=== PATIENT | male | born 1960 | race American Indian/Alaskan Native ===

== ENCOUNTER 2019-08-22 17:26 | Inpatient (IN) | payer MEDICARE ==
--- NOTE | 2019-08-22 18:31 | Emergency Department Report ---
ED Chest Pain HPI - General Chief Complaint: Chest Pain Stated Complaint: CHEST PAIN Time Seen by Provider: 08/22/19 18:18 Source: patient, EMS Mode of arrival: Stretcher Limitations: No Limitations - History of Present Illness Initial Comments: 58-year-old male with history of ESRD, hypertension, CAD, CVA, presents to ED with chest pain. Patient reports substernal chest pain, "sticking" in nature that began after he finished his dialysis session. Patient denies any radiation of the pain. He denies any nausea, vomiting, diaphoresis. Patient reports he was mildly short of breath when he went to tell the nurse to call 911. Patient states he was given aspirin and 3 sublingual nitroglycerin by the nurse the dialysis center. The patient states that his chest pain from a 4 to a 2. Patient states he had a heart attack in 2013 and reports having open heart surgery. He is unsure if he had stents or if the surgery that he had was a CABG. Bulk Sealer: Rossy Prieto MD Complaint: chest pain Onset: during rest Pain Location: substernal Pain Radiation: none Severity: mild Severity scale (0 -10): 2 Quality: similar to prior [place], other ("sticking") Consistency: other (now improved) Improves With: nitroglycerin Worsens With: nothing re: dyspnea. denies: nausea, vomting, diaphoresis Other Symptoms: denies: cough, fever, leg swelling Treatments Prior to Arrival: aspirin, nitroglycerin - Related Data Home Medications Medication Instructions Recorded Confirmed Last Taken B Complex 11/Folic/C/Biot/Zinc 1 each PO DAILY 08/22/19 08/22/19 08/22/19 [Dialyvite with Zinc Tablet] Losartan Potassium 100 mg PO DAILY 08/22/19 08/22/19 08/22/19 Sevelamer Carbonate [Renvela] 800 mg PO TIDWM 08/22/19 08/22/19 08/22/19 carvediloL [Coreg] 6.25 mg PO BID 08/22/19 08/22/19 08/22/19 Allergies Allergy/AdvReac Type Severity Reaction Status Date / Time No Known Allergies Allergy Unverified 08/22/19 17:54 Heart Score - HEART Score History: Slightly suspicious EKG: Non-specific Age: 45-65 Risk factors: > 3 risk factors or hx of atherosclerotic disease Troponin: 1-3x normal limit HEART Score: 5 ED Review of Systems ROS: Stated complaint: CHEST PAIN Other details as noted in HPI Comment: All other systems reviewed and negative Constitutional: denies: chills, fever Respiratory: shortness of breath Cardiovascular: chest pain Gastrointestinal: denies: nausea, vomiting ED Past Medical Hx - Past Medical History Previous Medical History?: Yes Hx Hypertension: Yes Hx CVA: Yes (2014) Hx Heart Attack/AMI: Yes (2013) Hx Renal Disease: Yes (HD MWF) - Surgical History Past Surgical History?: Yes Hx Open Heart Surgery: Yes (CABG) - Social History Smoking Status: Never Smoker Substance Use Type: None - Medications Home Medications: Home Medications Medication Instructions Recorded Confirmed Last Taken Type B Complex 11/Folic/C/Biot/Zinc 1 each PO DAILY 08/22/19 08/22/19 08/22/19 History [Dialyvite with Zinc Tablet] Losartan Potassium 100 mg PO DAILY 08/22/19 08/22/19 08/22/19 History Sevelamer Carbonate [Renvela] 800 mg PO TIDWM 08/22/19 08/22/19 08/22/19 History carvediloL [Coreg] 6.25 mg PO BID 08/22/19 08/22/19 08/22/19 History ED Physical Exam - General Limitations: No Limitations General appearance: alert, in no apparent distress - Head Head exam: Present: atraumatic, normocephalic - Eye Eye exam: Present: normal appearance, EOMI - ENT ENT exam: Present: mucous membranes moist - Neck Neck exam: Present: normal inspection - Respiratory Respiratory exam: Present: normal lung sounds bilaterally. Absent: respiratory distress - Cardiovascular Cardiovascular Exam: Present: regular rate, normal rhythm - GI/Abdominal GI/Abdominal exam: Present: soft. Absent: distended, tenderness - Extremities Exam Extremities exam: Present: normal inspection - Neurological Exam Neurological exam: Present: alert, oriented X3 - Psychiatric Psychiatric exam: Present: normal affect, normal mood - Skin Skin exam: Present: warm, dry, intact, normal color ED Course Vital Signs 08/22/19 08/22/19 08/22/19 17:46 19:42 20:52 Temperature 97.5 F L 98.6 F Pulse Rate 88 81 89 Respiratory 16 18 Rate Blood Pressure 126/79 Blood Pressure 139/88 [Left] O2 Sat by Pulse 100 99 Oximetry - Consultations Consultation #1: 08/22/19 19:40 Prehospital and ED EKG's sent to Dr Rivera for review. States no STEMI. APOLINAR score - Apolinar Score Age > 65: (0) No Aspirin use within the Past 7 Days: (0) No 3 or more CAD Risk Factors: (1) Yes 2 or more Angina events in past 24 hrs: (0) No Known CAD with more than 50% Stenosis: (1) Yes Elevated Cardiac Markers: (1) Yes ST Deviation Greater than 0.5mm: (0) No APOLINAR Score: 3 ED Medical Decision Making - Lab Data Result diagrams: 08/22/19 18:38 08/22/19 18:38 - EKG Data -: EKG Interpreted by Me EKG shows normal: sinus rhythm, axis - EKG Data Interpretation: LVH, other (prolonged QT; T wave inversions I, aVL V2) - Radiology Data Radiology results: report reviewed, image reviewed - Medical Decision Making 58 yo M w/ hx of CAD, ESRD presents to ED with chest pain. Aspirin, SL nitro given prior to ED arrival. Upon ED arrival, pt rates chest pain intensity 2/10. EKG does not show STEMI, they were sent to interventionalist for review. Troponin slightly elevated, possibly due to pt's renal function. Remainder of labs unremarkable. Will admit for further management. - Differential Diagnosis ACS, pulm edema, pneumonia Critical care attestation.: If time is entered above; I have spent that time in minutes in the direct care of this critically ill patient, excluding procedure time. ED Disposition Clinical Impression: Acute chest pain Disposition: OP ADMIT IP TO THIS HOSP Is pt being admited?: Yes Condition: Stable Time of Disposition: 19:44
[2019-08-22 19:02] LABS: Basophils % (Auto) 0.4 % (0.0-1.8); Eosinophils # (Auto) 0.1 K/mm3 (0.0-0.4); Eosinophils % (Auto) 1.2 % (0.0-4.3); Hematocrit 38.9 % (35.5-45.6); Lymphocytes # (Auto) 1.6 K/mm3 (1.2-5.4); Lymphocytes % (Auto) 31.6 % (13.4-35.0); Mean Corpuscular HGB Conc 33 % (32-34); Mean Corpuscular Volume 90 fl (84-94); Monocytes # (Auto) 0.5 K/mm3 (0.0-0.8); Monocytes % (Auto) 9.3 % (0.0-7.3); Platelet Count 170 K/mm3 (140-440); Red Blood Count 4.34 M/mm3 (3.65-5.03); Red Cell Distribution Width 16.2 % (13.2-15.2)
--- NOTE | 2019-08-22 19:02 | XRay Report ---
CHEST 1 VIEW 1836 INDICATION / CLINICAL INFORMATION: chest pain. COMPARISON: None available. FINDINGS: SUPPORT DEVICES: None HEART / MEDIASTINUM: Cardiac surgical changes are noted. Heart size appears within normal limits. LUNGS / PLEURA: No significant pulmonary or pleural abnormality. No pneumothorax. ADDITIONAL FINDINGS: No significant additional findings. IMPRESSION: No significant acute abnormality Signer Name: Carlo Olsen MD Signed: 08/22/2019 6:58 PM Workstation Name: [id number]
[2019-08-22 19:12] LABS: INR 0.9 (0.87-1.13); Partial Thromboplastin Time 27.6 Sec. (24.2-36.6)
[2019-08-22 19:22] LABS: Calcium 9.1 mg/dL (8.4-10.2)
[2019-08-22 19:38] LABS: Chol/HDL Ratio 5.81 %
[2019-08-22] MEDS ORDERED: ONDANSETRON 4 MG/2 ML INJ IV PRN (19:52)
--- NOTE | 2019-08-22 20:22 | History and Physical Report ---
<RONNIE MORALES - Last Filed: 08/23/19 01:03> History of Present Illness Date of examination: 08/22/19 Date of admission: 08/22/19 Chief complaint: Chest pain History of present illness: Pt is a 58-year-old male with a past medical history of ESRD, hypertension,and, CVA (2013),whom presents to ED with complaints of chest pain. Patient reports the chest pain started after he completed dialysis today. He was waiting at the bus stop, and the pain was a sudden onset and described as sharp in nature, without radiation and unaccompanied by any nausea. Patient states since he started dialysis in November of 2018, and he has had 2 incidents of shortness of breath right after being dialyzed with syncopal events. He states he has not received care or come to the ER because he was already close to home on both occasions. Past History Past Medical History: acute [place] (2013), ESRD (2018), hypertension Past Surgical History: CABG Social history: lives with family Family history: cancer, diabetes Medications and Allergies Allergies Allergy/AdvReac Type Severity Reaction Status Date / Time No Known Allergies Allergy Unverified 08/22/19 17:54 Home Medications Medication Instructions Recorded Confirmed Last Taken Type B Complex 11/Folic/C/Biot/Zinc 1 each PO DAILY 08/22/19 08/22/19 08/22/19 History [Dialyvite with Zinc Tablet] Losartan Potassium 100 mg PO DAILY 08/22/19 08/22/19 08/22/19 History Sevelamer Carbonate [Renvela] 800 mg PO TIDWM 08/22/19 08/22/19 08/22/19 History carvediloL [Coreg] 6.25 mg PO BID 08/22/19 08/22/19 08/22/19 History Active Meds: Active Medications Acetaminophen (Tylenol) 650 mg PO Q4H PRN PRN Reason: Pain MILD(1-3)/Fever >100.5/BOYCE Ondansetron HCl (Zofran) 4 mg IV Q8H PRN PRN Reason: Nausea And Vomiting Sodium Chloride (Sodium Chloride Flush Syringe 10 Ml) 10 ml IV BID FER Sodium Chloride (Sodium Chloride Flush Syringe 10 Ml) 10 ml IV PRN PRN PRN Reason: LINE FLUSH Review of Systems All systems: negative Ears, nose, mouth and throat: nasal congestion, no dental pain, no mouth pain, no sore throat Cardiovascular: chest pain, dyspnea on exertion, high blood pressure, leg edema Respiratory: cough, no pain on inspiration, no home oxygen Gastrointestinal: no nausea, no vomiting, no diarrhea Genitourinary Male: no dysuria Rectal: no pain Musculoskeletal: no arm numbness/tingling, no low back pain, no shooting leg regi n, no leg numbness/tingling Integumentary: no rash Neurological: no head injury, no weakness Psychiatric: no anxiety, no change in appetite, no suicidal ideation Endocrine: no cold intolerance, no excessive sweating Hematologic/Lymphatic: no easy bruising, no easy bleeding Allergic/Immunologic: no urticaria Exam - Physical Exam Narrative exam: General appearance: Present: no acute distress - EENT Eyes: Present: PERRL, EOM intact ENT: hearing intact - Neck Neck: Present: supple, normal ROM - Respiratory Respiratory effort: normal Respiratory: bilateral: CTA - Cardiovascular Rhythm: regular - Extremities Extremities: pulses intact Peripheral Pulses: within normal limits - Abdominal General gastrointestinal: Non- tender - Integumentary Integumentary: Present: warm, dry - Musculoskeletal Musculoskeletal: strength unequal bilaterally, ambulates with cane - Psychiatric Psychiatric: appropriate mood/affect - Neurologic Neurologic: CNII-XII intact - Constitutional Vitals: Temp Pulse Resp BP Pulse Ox 97.5 F L 81 16 126/79 100 08/22/19 17:46 08/22/19 19:42 08/22/19 17:46 08/22/19 17:46 08/22/19 17:46 Results - Labs CBC & Chem 7: 08/22/19 18:38 08/22/19 18:38 Labs: Laboratory Last Values WBC 4.9 K/mm3 (4.5-11.0) 08/22/19 18:38 RBC 4.34 M/mm3 (3.65-5.03) 08/22/19 18:38 Hgb 13.0 gm/dl (11.8-15.2) 08/22/19 18:38 Hct 38.9 % (35.5-45.6) 08/22/19 18:38 MCV 90 fl (84-94) 08/22/19 18:38 MCH 30 pg (28-32) 08/22/19 18:38 MCHC 33 % (32-34) 08/22/19 18:38 RDW 16.2 % (13.2-15.2) H 08/22/19 18:38 Plt Count 170 K/mm3 (140-440) 08/22/19 18:38 Lymph % (Auto) 31.6 % (13.4-35.0) 08/22/19 18:38 Baldwin % (Auto) 9.3 % (0.0-7.3) H 08/22/19 18:38 Eos % (Auto) 1.2 % (0.0-4.3) 08/22/19 18:38 Baso % (Auto) 0.4 % (0.0-1.8) 08/22/19 18:38 Lymph # 1.6 K/mm3 (1.2-5.4) 08/22/19 18:38 Baldwin # 0.5 K/mm3 (0.0-0.8) 08/22/19 18:38 Eos # 0.1 K/mm3 (0.0-0.4) 08/22/19 18:38 Baso # 0.0 K/mm3 (0.0-0.1) 08/22/19 18:38 Seg Neutrophils % 57.5 % (40.0-70.0) 08/22/19 18:38 Seg Neutrophils # 2.8 K/mm3 (1.8-7.7) 08/22/19 18:38 PT 12.2 Sec. (12.2-14.9) 08/22/19 18:38 INR 0.90 (0.87-1.13) 08/22/19 18:38 APTT 27.6 Sec. (24.2-36.6) 08/22/19 18:38 Sodium 140 mmol/L (137-145) 08/22/19 18:38 Potassium 4.3 mmol/L (3.6-5.0) 08/22/19 18:38 Chloride 97.4 mmol/L (98-107) L 08/22/19 18:38 Carbon Dioxide 25 mmol/L (22-30) 08/22/19 18:38 Anion Gap 22 mmol/L 08/22/19 18:38 BUN 23 mg/dL (9-20) H 08/22/19 18:38 Creatinine 4.8 mg/dL (0.8-1.5) H 08/22/19 18:38 Estimated GFR 13 ml/min 08/22/19 18:38 BUN/Creatinine Ratio 5 % 08/22/19 18:38 Glucose 102 mg/dL (75-100) H 08/22/19 18:38 Calcium 9.1 mg/dL (8.4-10.2) 08/22/19 18:38 Troponin T 0.040 ng/mL (0.00-0.029) H 08/22/19 18:38 Triglycerides 391 mg/dL (2-149) H 08/22/19 18:38 Cholesterol 215 mg/dL (50-199) H 08/22/19 18:38 LDL Cholesterol Direct 126 mg/dL (50-130) 08/22/19 18:38 HDL Cholesterol 37 mg/dL (40-59) L 08/22/19 18:38 Cholesterol/HDL Ratio 5.81 % 08/22/19 18:38 - Imaging and Cardiology EKG: report reviewed (sinus rhythm, LVH ) Chest x-ray: report reviewed (No significant acute abnormality ) Assessment and Plan Assessment and plan: Pt is a 58-year-old male with a past medical history of ESRD, hypertension, gastric bypass and, CVA (2013),whom presents to ED with chest pain today. At assessment he reports pain of 2 out of 10, sharp, with no radiation. He also denies nausea or vomiting at this time. Chest pain -EKG; LVH -Cardiology consult -Trend troponin ESRD -MWF dialysis -Nephrology consult -monitor labs Hypertension -BP currently stable -Continue home meds after reconciled, adjust as needed -PRN IV hydralazine -Monitor BP q shift DVT prophylaxis -SCD to BLE while in bed -Heparin subq VTE prophylaxis?: Chemical Plan of care discussed with patient/family: Yes <BHAKTI BONDS - Last Filed: 08/23/19 03:38> History of Present Illness Date of admission: 08/22/19 19:52 Medications and Allergies Active Meds: Active Medications Acetaminophen (Tylenol) 650 mg PO Q4H PRN PRN Reason: Pain MILD(1-3)/Fever >100.5/BOYCE Heparin Sodium (Porcine) (Heparin) 5,000 unit SUB-Q Q12HR [facility] Last Admin: 08/22/19 22:08 Dose: 5,000 unit Documented by: Hydralazine HCl (Apresoline) 10 mg IV Q4HR PRN PRN Reason: FOR SBP>160 AND/OR DBP>100 Ondansetron HCl (Zofran) 4 mg IV Q8H PRN PRN Reason: Nausea And Vomiting Sodium Chloride (Sodium Chloride Flush Syringe 10 Ml) 10 ml IV BID [facility] Last Admin: 08/22/19 22:08 Dose: 10 ml Documented by: Sodium Chloride (Sodium Chloride Flush Syringe 10 Ml) 10 ml IV PRN PRN PRN Reason: LINE FLUSH Exam - Constitutional Vitals: Temp Pulse Resp BP Pulse Ox 98.7 F 79 18 149/85 92 08/22/19 22:42 08/22/19 22:42 08/22/19 22:42 08/22/19 22:42 08/22/19 22:42 Results - Labs CBC & Chem 7: 08/22/19 18:38 08/22/19 18:38 Labs: Laboratory Last Values WBC 4.9 K/mm3 (4.5-11.0) 08/22/19 18:38 RBC 4.34 M/mm3 (3.65-5.03) 08/22/19 18:38 Hgb 13.0 gm/dl (11.8-15.2) 08/22/19 18:38 Hct 38.9 % (35.5-45.6) 08/22/19 18:38 MCV 90 fl (84-94) 08/22/19 18:38 MCH 30 pg (28-32) 08/22/19 18:38 MCHC 33 % (32-34) 08/22/19 18:38 RDW 16.2 % (13.2-15.2) H 08/22/19 18:38 Plt Count 170 K/mm3 (140-440) 08/22/19 18:38 Lymph % (Auto) 31.6 % (13.4-35.0) 08/22/19 18:38 Baldwin % (Auto) 9.3 % (0.0-7.3) H 08/22/19 18:38 Eos % (Auto) 1.2 % (0.0-4.3) 08/22/19 18:38 Baso % (Auto) 0.4 % (0.0-1.8) 08/22/19 18:38 Lymph # 1.6 K/mm3 (1.2-5.4) 08/22/19 18:38 Baldwin # 0.5 K/mm3 (0.0-0.8) 08/22/19 18:38 Eos # 0.1 K/mm3 (0.0-0.4) 08/22/19 18:38 Baso # 0.0 K/mm3 (0.0-0.1) 08/22/19 18:38 Seg Neutrophils % 57.5 % (40.0-70.0) 08/22/19 18:38 Seg Neutrophils # 2.8 K/mm3 (1.8-7.7) 08/22/19 18:38 PT 12.2 Sec. (12.2-14.9) 08/22/19 18:38 INR 0.90 (0.87-1.13) 08/22/19 18:38 APTT 27.6 Sec. (24.2-36.6) 08/22/19 18:38 Sodium 140 mmol/L (137-145) 08/22/19 18:38 Potassium 4.3 mmol/L (3.6-5.0) 08/22/19 18:38 Chloride 97.4 mmol/L (98-107) L 08/22/19 18:38 Carbon Dioxide 25 mmol/L (22-30) 08/22/19 18:38 Anion Gap 22 mmol/L 08/22/19 18:38 BUN 23 mg/dL (9-20) H 08/22/19 18:38 Creatinine 4.8 mg/dL (0.8-1.5) H 08/22/19 18:38 Estimated GFR 13 ml/min 08/22/19 18:38 BUN/Creatinine Ratio 5 % 08/22/19 18:38 Glucose 102 mg/dL (75-100) H 08/22/19 18:38 Calcium 9.1 mg/dL (8.4-10.2) 08/22/19 18:38 Total Creatine Kinase 880 units/L (55-170) H 08/22/19 22:58 CK-MB (CK-2) 4.6 ng/mL (0.0-4.0) H 08/22/19 22:58 CK-MB (CK-2) Rel Index 0.5 (0-4) 08/22/19 22:58 Troponin T 0.048 ng/mL (0.00-0.029) H 08/22/19 23:01 Triglycerides 391 mg/dL (2-149) H 08/22/19 18:38 Cholesterol 215 mg/dL (50-199) H 08/22/19 18:38 LDL Cholesterol Direct 126 mg/dL (50-130) 08/22/19 18:38 HDL Cholesterol 37 mg/dL (40-59) L 08/22/19 18:38 Cholesterol/HDL Ratio 5.81 % 08/22/19 18:38 Assessment and Plan Assessment and plan: 58-year-old woman with a history of hypertension since, end-stage renal disease, seizure comes emergency room with complaints of chest pain located in the epigastric area relieved with 3 nitroglycerin. He had a stress test 1 year ago which was negative. Patient with elevated troponin in the setting of end-stage renal disease, agree with cardiology consult.
[2019-08-22] MEDS ORDERED: hydrALAZINE 20 MG/1 ML INJ IV PRN (22:00)
[2019-08-22] MEDS: HEPARIN 5,000 UNIT/1 ML VIAL SUB-Q SCH (22:08)
[2019-08-22 23:43] LABS: Creatine Kinase MB 4.6 ng/mL (0.0-4.0)
[2019-08-23 05:50] LABS: Basophils % (Auto) 0.5 % (0.0-1.8); Eosinophils # (Auto) 0.1 K/mm3 (0.0-0.4); Eosinophils % (Auto) 1.3 % (0.0-4.3); Hemoglobin 12.7 gm/dl (11.8-15.2); Lymphocytes # (Auto) 1.9 K/mm3 (1.2-5.4); Lymphocytes % (Auto) 33.6 % (13.4-35.0); Mean Corpuscular HGB Conc 34 % (32-34); Mean Corpuscular Volume 89 fl (84-94); Monocytes # (Auto) 0.6 K/mm3 (0.0-0.8); Platelet Count 158 K/mm3 (140-440); Red Blood Count 4.15 M/mm3 (3.65-5.03); Red Cell Distribution Width 16.6 % (13.2-15.2)
[2019-08-23 06:12] LABS: Calcium 8.4 mg/dL (8.4-10.2)
[2019-08-23] MEDS: SEVELAMER CARBONATE 800 MG TAB PO SCH ×3 (08:35→16:40)
[2019-08-23] MEDS: ACETAMINOPHEN 325 MG TAB PO PRN (10:20)
[2019-08-23] MEDS: FOLIC ACID/VIT B COMP W-C 1 MG (RENAL CAPS) PO SCH (10:21)
[2019-08-23] MEDS: LOSARTAN 50 MG TAB PO SCH (10:21)
[2019-08-23] MEDS: HEPARIN 5,000 UNIT/1 ML VIAL SUB-Q SCH ×2 (10:22→23:27)
--- NOTE | 2019-08-23 12:18 | Consultation ---
History of Present Illness Consult date: 08/23/19 Consult reason: chest pain History of present illness: 58-year old male with multiple medical problems. He has a history of coronary artery disease with 3 vessel bypass grafting in [address] [facility]. Patient has not followed up with a fundraising specialist and it is unclear of his last cardiac workup. Patient has end stage renal disease on hemodialysis, chronic anemia, hyperlipidemia and hypertension. Patient was sent from dialysis to this hospital with complaints of chest pain associated with shortness of breath. Patient denies palpitations and diaphoresis. There is no lower extremity edema. Chest x-ray is negative. An ECG is sinus rhythm with LVH. Cardiology consultation has been requested for chest pain evaluation. Past History Past Medical History: acute [place] (2013), ESRD (2019), hypertension Past Surgical History: CABG Social history: lives with family Family history: cancer, diabetes Medications and Allergies Allergies Allergy/AdvReac Type Severity Reaction Status Date / Time No Known Allergies Allergy Unverified 08/22/19 17:54 Home Medications Medication Instructions Recorded Confirmed Last Taken Type B Complex 11/Folic/C/Biot/Zinc 1 each PO DAILY 08/22/19 08/22/19 08/22/19 History [Dialyvite with Zinc Tablet] Losartan Potassium 100 mg PO DAILY 08/22/19 08/22/19 08/22/19 History Sevelamer Carbonate [Renvela] 800 mg PO TIDWM 08/22/19 08/22/19 08/22/19 History carvediloL [Coreg] 6.25 mg PO BID 08/22/19 08/22/19 08/22/19 History Active Meds: Active Medications Acetaminophen (Tylenol) 650 mg PO Q4H PRN PRN Reason: Pain MILD(1-3)/Fever >100.5/BOYCE Last Admin: 08/23/19 10:20 Dose: 650 mg Documented by: Heparin Sodium (Porcine) (Heparin) 5,000 unit SUB-Q Q12HR [facility] Last Admin: 08/23/19 10:22 Dose: 5,000 unit Documented by: Hydralazine HCl (Apresoline) 10 mg IV Q4HR PRN PRN Reason: FOR SBP>160 AND/OR DBP>100 Losartan Potassium (Cozaar) 100 mg PO DAILY [facility] Last Admin: 08/23/19 10:21 Dose: 100 mg Documented by: Multivit/Ca Carb/B Cmplx/FA/Prenat (Renal Caps) 1 cap PO QDAY [facility] Last Admin: 08/23/19 10:21 Dose: 1 cap Documented by: Ondansetron HCl (Zofran) 4 mg IV Q8H PRN PRN Reason: Nausea And Vomiting Sevelamer Carbonate (Renvela) 800 mg PO TIDWM [facility] Last Admin: 08/23/19 08:35 Dose: 800 mg Documented by: Sodium Chloride (Sodium Chloride Flush Syringe 10 Ml) 10 ml IV BID [facility] Last Admin: 08/23/19 10:22 Dose: 10 ml Documented by: Sodium Chloride (Sodium Chloride Flush Syringe 10 Ml) 10 ml IV PRN PRN PRN Reason: LINE FLUSH Physical Examination Vital Signs Temp Pulse Resp BP Pulse Ox 97.5 F L 88 16 126/79 100 08/22/19 17:46 08/22/19 17:46 08/22/19 17:46 08/22/19 17:46 08/22/19 17:46 General appearance: no acute distress HEENT: Positive: PERRL Neck: Positive: trachea midline Cardiac: Positive: Reg Rate and Rhythm Lungs: Positive: Decreased Breath Sounds Results 08/23/19 05:19 08/23/19 05:19 Cardiac Enzymes 08/22/19 08/23/19 Range/Units 22:58 05:19 CK-MB (CK-2) 4.6 H 5.0 H (0.0-4.0) ng/mL Coagulation 08/22/19 Range/Units 18:38 PT 12.2 (12.2-14.9) Sec. INR 0.90 (0.87-1.13) APTT 27.6 (24.2-36.6) Sec. Lipids 08/22/19 Range/Units 18:38 Triglycerides 391 H (2-149) mg/dL Cholesterol 215 H (50-199) mg/dL HDL Cholesterol 37 L (40-59) mg/dL Cholesterol/HDL Ratio 5.81 % CBC 08/22/19 08/23/19 Range/Units 18:38 05:19 WBC 4.9 5.5 (4.5-11.0) K/mm3 RBC 4.34 4.15 (3.65-5.03) M/mm3 Hgb 13.0 12.7 (11.8-15.2) gm/dl Hct 38.9 37.0 (35.5-45.6) % Plt Count 170 158 (140-440) K/mm3 Lymph # 1.6 1.9 (1.2-5.4) K/mm3 [place] # 0.5 0.6 (0.0-0.8) K/mm3 Eos # 0.1 0.1 (0.0-0.4) K/mm3 Baso # 0.0 0.0 (0.0-0.1) K/mm3 Comprehensive Metabolic Panel 08/22/19 08/23/19 Range/Units 18:38 05:19 Sodium 140 135 L (137-145) mmol/L Potassium 4.3 3.5 L (3.6-5.0) mmol/L Chloride 97.4 L 94.9 L (98-107) mmol/L Carbon Dioxide 25 25 (22-30) mmol/L BUN 23 H 31 H (9-20) mg/dL Creatinine 4.8 H 5.8 H (0.8-1.5) mg/dL Glucose 102 H 109 H (75-100) mg/dL Calcium 9.1 8.4 (8.4-10.2) mg/dL Assessment and Plan Chest pain Mild elevated troponin likely in the setting of renal failure Hx of CAD with 3v CABG in 2013 at [facility]'s noncompliant with outpatient cardiac follow up ESRD on dialysis Chronic anemia HLP Htn
--- NOTE | 2019-08-23 17:13 | Progress Note ---
Assessment and Plan Assessment and plan: Patient is a 58-year-old man with a history of ESRD, hypertension and CVA (2013) who presents to [facility] ED with chest pains and near syncope. He was found to have positive troponin with on going chest pains, so [facility] (in coordination) with hemodialysis is planned for tomorrow. . Chest pain, suspected NSTEMI vs type 2 WA -EKG; LVH -Cardiology consult, input noted -[facility] tomorrow ESRD -MWF dialysis -Nephrology consult -monitor labs Hypertension -BP currently stable -Continue home meds after reconciled, adjust as needed -PRN IV hydralazine -Monitor BP q shift DVT prophylaxis -SCD to BLE while in bed -Heparin subq History Interval history: Patient was seen and examined. Follow-up on current diagnosis chest pains. +Recurrent Chest pains. No overnight events reported to me. Patient denies any shortness breath, nausea/vomiting or severe headaches. Imaging, nursing note, chart, labs and old chart reviewed. Discussed with patient. Hospitalist Physical - Physical exam Narrative exam: Gen: WDWN, NAD, Awake, Alert, Orientated HEENT: NCAT, EOMI, PERRL, OP Clear Neck: supple, no adenopathy, no thyromegaly, no JVD CVS/Heart: RRR, normal S1S2, pulses present bilaterally Chest/Lungs: CTA B, Symmetrical chest expansion, good air entry bilaterally GI/Abdomen: soft, NTND, good bowel sounds, no guarding or rebound /Bladder: no suprapubic tenderness, no CVA or paraspinal tenderness Extermity/Skin: no c/c/e, no obvious rash MSK: FROM x 4 Neuro: CN 2-12 grossly intact, no new focal deficits Psych: calm - Constitutional Vitals: Temp Pulse Resp BP Pulse Ox 98.0 F 85 20 152/92 97 08/23/19 11:51 08/23/19 12:00 08/23/19 11:51 08/23/19 11:51 08/23/19 11:51 General appearance: Present: no acute distress Results - Labs CBC & Chem 7: 08/23/19 05:19 08/23/19 05:19 Labs: Laboratory Last Values WBC 5.5 K/mm3 (4.5-11.0) 08/23/19 05:19 RBC 4.15 M/mm3 (3.65-5.03) 08/23/19 05:19 Hgb 12.7 gm/dl (11.8-15.2) 08/23/19 05:19 Hct 37.0 % (35.5-45.6) 08/23/19 05:19 MCV 89 fl (84-94) 08/23/19 05:19 MCH 31 pg (28-32) 08/23/19 05:19 MCHC 34 % (32-34) 08/23/19 05:19 RDW 16.6 % (13.2-15.2) H 08/23/19 05:19 Plt Count 158 K/mm3 (140-440) 08/23/19 05:19 Lymph % (Auto) 33.6 % (13.4-35.0) 08/23/19 05:19 [place] % (Auto) 10.0 % (0.0-7.3) H 08/23/19 05:19 Eos % (Auto) 1.3 % (0.0-4.3) 08/23/19 05:19 Baso % (Auto) 0.5 % (0.0-1.8) 08/23/19 05:19 Lymph # 1.9 K/mm3 (1.2-5.4) 08/23/19 05:19 [place] # 0.6 K/mm3 (0.0-0.8) 08/23/19 05:19 Eos # 0.1 K/mm3 (0.0-0.4) 08/23/19 05:19 Baso # 0.0 K/mm3 (0.0-0.1) 08/23/19 05:19 Seg Neutrophils % 54.6 % (40.0-70.0) 08/23/19 05:19 Seg Neutrophils # 3.0 K/mm3 (1.8-7.7) 08/23/19 05:19 PT 12.2 Sec. (12.2-14.9) 08/22/19 18:38 INR 0.90 (0.87-1.13) 08/22/19 18:38 APTT 27.6 Sec. (24.2-36.6) 08/22/19 18:38 Sodium 135 mmol/L (137-145) L 08/23/19 05:19 Potassium 3.5 mmol/L (3.6-5.0) L 08/23/19 05:19 Chloride 94.9 mmol/L (98-107) L 08/23/19 05:19 Carbon Dioxide 25 mmol/L (22-30) 08/23/19 05:19 Anion Gap 19 mmol/L 08/23/19 05:19 BUN 31 mg/dL (9-20) H 08/23/19 05:19 Creatinine 5.8 mg/dL (0.8-1.5) H 08/23/19 05:19 Estimated GFR 12 ml/min 08/23/19 05:19 BUN/Creatinine Ratio 5 % 08/23/19 05:19 Glucose 109 mg/dL (75-100) H 08/23/19 05:19 Calcium 8.4 mg/dL (8.4-10.2) 08/23/19 05:19 Total Creatine Kinase 1035 units/L (55-170) H 08/23/19 05:19 CK-MB (CK-2) 5.0 ng/mL (0.0-4.0) H 08/23/19 05:19 CK-MB (CK-2) Rel Index 0.4 (0-4) 08/23/19 05:19 Troponin T 0.044 ng/mL (0.00-0.029) H 08/23/19 05:19 Triglycerides 391 mg/dL (2-149) H 08/22/19 18:38 Cholesterol 215 mg/dL (50-199) H 08/22/19 18:38 LDL Cholesterol Direct 126 mg/dL (50-130) 08/22/19 18:38 HDL Cholesterol 37 mg/dL (40-59) L 08/22/19 18:38 Cholesterol/HDL Ratio 5.81 % 08/22/19 18:38 Active Medications - Current Medications Current Medications: Generic Name Dose Route Start Last Admin Trade Name Freq PRN Reason Stop Dose Admin Acetaminophen 650 mg 08/22/19 19:52 08/23/19 10:20 Tylenol PO 650 mg Q4H PRN Administration Pain MILD(1-3)/Fever >100.5/BOYCE Heparin Sodium (Porcine) 5,000 unit 08/22/19 22:00 08/23/19 10:22 Heparin SUB-Q 5,000 unit Q12HR FER Administration Hydralazine HCl 10 mg 08/22/19 22:00 Apresoline IV Q4HR PRN FOR SBP>160 AND/OR DBP>100 Losartan Potassium 100 mg 08/23/19 10:00 08/23/19 10:21 Cozaar PO 100 mg DAILY FER Administration Multivit/Ca Carb/B Cmplx/FA/Prenat 1 cap 08/23/19 10:00 08/23/19 10:21 Renal Caps PO 1 cap QDAY FER Administration Ondansetron HCl 4 mg 08/22/19 19:52 Zofran IV Q8H PRN Nausea And Vomiting Sevelamer Carbonate 800 mg 08/23/19 08:00 08/23/19 16:40 Renvela PO 800 mg TIDWM FER Administration Sodium Chloride 10 ml 08/22/19 22:00 08/23/19 10:22 Sodium Chloride Flush Syringe 10 Ml IV 10 ml BID FER Administration Sodium Chloride 10 ml 08/22/19 19:52 Sodium Chloride Flush Syringe 10 Ml IV PRN PRN LINE FLUSH
--- NOTE | 2019-08-23 19:14 | Consultation ---
History of Present Illness - Reason for Consult Consult date: 08/23/19 end stage renal disease, other (chest pain) Requesting physician: EDMUNDO HERNANDEZ - History of Present Illness 58-year-old male with a history of hypertension, complicated by end-stage renal disease on hemodialysis since November 2018. He also has a history of coronary artery bypass in 2013 following a myocardial infarction. He has been doing well on dialysis other than 2 episodes of syncope. Patient had dialysis yesterday and completed dialysis, and while waiting for JEROME peña to take him home, he developed abdominal pain which then radiated to the left side of his chest. Pain was severe and made the patient bend over and start crying and so he told the dialysis staff to call 911. There was associated shortness of breath but denies any palpitations, dizziness, diaphoresis, nausea or vomiting. Patient was given aspirin and 2 nitroglycerin tablets. He's not had any chest pain s carlos earlier today. He feels better. Past History Past Medical History: acute [place] (2013), ESRD (2018), hypertension, stroke Past Surgical History: CABG, Other (Surgert to repair lacerated ligaments right wrist workplace injury.) Social history: lives with family (lives with his ), alcohol abuse (with drinking alcohol November 2018. 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 denies: smoking (lifetime nonsmoker), prescription drug abuse, IV drug use Family history: cancer, diabetes Medications and Allergies Allergies Allergy/AdvReac Type Severity Reaction Status Date / Time No Known Allergies Allergy Unverified 08/22/19 17:54 Home Medications Medication Instructions Recorded Confirmed Last Taken Type B Complex 11/Folic/C/Biot/Zinc 1 each PO DAILY 08/22/19 08/22/19 08/22/19 History [Dialyvite with Zinc Tablet] Losartan Potassium 100 mg PO DAILY 08/22/19 08/22/19 08/22/19 History Sevelamer Carbonate [Renvela] 800 mg PO TIDWM 08/22/19 08/22/19 08/22/19 History carvediloL [Coreg] 6.25 mg PO BID 08/22/19 08/22/19 08/22/19 History Active Meds: Active Medications Acetaminophen (Tylenol) 650 mg PO Q4H PRN PRN Reason: Pain MILD(1-3)/Fever >100.5/BOYCE Last Admin: 08/23/19 10:20 Dose: 650 mg Documented by: Heparin Sodium (Porcine) (Heparin) 5,000 unit SUB-Q Q12HR [facility] Last Admin: 08/23/19 10:22 Dose: 5,000 unit Documented by: Hydralazine HCl (Apresoline) 10 mg IV Q4HR PRN PRN Reason: FOR SBP>160 AND/OR DBP>100 Losartan Potassium (Cozaar) 100 mg PO DAILY [facility] Last Admin: 08/23/19 10:21 Dose: 100 mg Documented by: Multivit/Ca Carb/B Cmplx/FA/Prenat (Renal Caps) 1 cap PO QDAY [facility] Last Admin: 08/23/19 10:21 Dose: 1 cap Documented by: Ondansetron HCl (Zofran) 4 mg IV Q8H PRN PRN Reason: Nausea And Vomiting Sevelamer Carbonate (Renvela) 800 mg PO TIDWM [facility] Last Admin: 08/23/19 16:40 Dose: 800 mg Documented by: Sodium Chloride (Sodium Chloride Flush Syringe 10 Ml) 10 ml IV BID [facility] Last Admin: 08/23/19 10:22 Dose: 10 ml Documented by: Sodium Chloride (Sodium Chloride Flush Syringe 10 Ml) 10 ml IV PRN PRN PRN Reason: LINE FLUSH Review of Systems All systems: negative (Constitutional: Admits to fever and chills. No anorexia or weight loss. HEENT: Admits to sore throat and sinus drainage no hearing or vision impairment . Cardiovascular: See history of present illness. Respiratory: Admits to cough which is nonproductive. No shortness of breath, hemoptysis or wheezing. Gastrointestinal: Had nausea, vomiting and diarrhea last week which he attributes to a stomach virus. No, abdominal pain, hematemesis or melena. Genitourinary: No frequency urgency dysuria or he maturia. hematologic: No abnormal bleeding or bruising. Integumentary: Admits to itching but no rash. Neurological: Has occasional headache no focal weakness or numbness, no syncope or seizures. Musculoskeletal: Admits to joint pains and stiffness. Psychiatry: no anxiety or depression) Exam - Vital Signs Vital signs: Vital Signs Temp Pulse Resp BP Pulse Ox 97.5 F L 88 16 126/79 100 08/22/19 17:46 08/22/19 17:46 08/22/19 17:46 08/22/19 17:46 08/22/19 17:46 - Physical Exam Narrative exam: Obese middle-aged -[place] male lying in bed in no acute distress HEENT: NCAT, pink oral mucous membrane Neck: Supple, no venous distention CVS: S1S2 RRR with no murmur, rub or gallop Chest: Clear to auscultation Abdomen: Obese, soft, nontender, no organomegaly, bowel sounds are present Extremities: No edema Genitourinary deferred Neuro: Awake, alert no focal deficits Results - Lab Results 08/23/19 05:19 08/23/19 05:19 Most recent lab results Calcium 8.4 mg/dL (8.4-10.2) 08/23/19 05:19 Assessment and Plan - Patient Problems (1) Hypertensive chronic kidney disease with stage 5 chronic kidney disease or end stage renal disease Current Visit: Yes Status: Acute Plan to address problem: Follow-up blood pressure on current medications (2) End stage renal disease Current Visit: Yes Status: Acute Plan to address problem: Hemodialysis on a Tuesday, Tuesday and Tuesday schedule (3) Chest pain at rest Current Visit: Yes Status: Acute Plan to address problem: Agree with cardiac workup (4) Anemia of chronic illness Current Visit: Yes Status: Acute Plan to address problem: Continue Erythropoetin on dialysis
[2019-08-23] MEDS ORDERED: SODIUM CHLORIDE 0.9% 100 ML IV PRN (19:44)
[2019-08-23] MEDS ORDERED: HEPARIN 10,000 UNITS/10 ML VIAL IV PRN (19:44)
[2019-08-24 06:38] LABS: INR 1.07 (0.87-1.13)
[2019-08-24 06:58] LABS: Calcium 8.9 mg/dL (8.4-10.2)
[2019-08-24] MEDS ORDERED: HEPARIN/NS 5000 UNIT/500ML 1,000 ML IR ONE (08:18)
[2019-08-24] MEDS ORDERED: LIDOCAINE (2%) 20 MG/1 ML VIAL 20 ML MDV INFILTRATI ONE (08:18)
[2019-08-24] MEDS ORDERED: HEPARIN 10,000 UNITS/10 ML VIAL ONE (08:18)
[2019-08-24] MEDS ORDERED: MIDAZOLAM 2 MG/2 ML INJ ONE (08:19)
[2019-08-24] MEDS ORDERED: fentaNYL 100 MCG/2 ML INJ ONE (08:19)
[2019-08-24] MEDS: SEVELAMER CARBONATE 800 MG TAB PO SCH ×3 (08:21→17:00)
[2019-08-24] MEDS ORDERED: ASPIRIN EC 325 MG TAB PO ONE (08:30)
[2019-08-24] MEDS ORDERED: SODIUM CHLORIDE 0.9% 500 ML 500 ML ONE (08:30)
[2019-08-24] MEDS ORDERED: SODIUM CHLORIDE 0.9% 100 ML IV PRN (08:31)
[2019-08-24] MEDS ORDERED: hydrALAZINE 20 MG/1 ML INJ ONE (09:01)
--- NOTE | 2019-08-24 09:39 | Progress Note ---
Assessment and Plan Unstable angina Cardiac cath this admission - patent SVG to distal RCA; patent ESTELITA to Diagonal; patient NÚÑEZ to LAD; scattered obstructive stenosis in the proximal Cx and PLOM as well as proximal OM1 (The circumflex was not bypassed in the past) Coronary artery disease s/p CABG x 3 in 2014 at [place] ESRD on HD Essential primary hypertension Recommendations: Start DAPT Start high intensity statin therapy Start anti-anginal therapy PCI to Circumflex on tuesday Subjective Date of service: 08/24/19 Principal diagnosis: Unstable angina Interval history: Patient underwent a LHC today without complications Objective Vital Signs Temp Pulse Pulse Pulse Pulse Pulse Pulse 08/24/19 04:46 98.0 F 08/24/19 01:00 76 08/23/19 23:41 98.7 F 84 08/23/19 20:46 98.5 F 83 08/23/19 17:05 98.0 F 78 08/23/19 17:00 75 08/23/19 12:00 85 08/23/19 11:51 98.0 F 89 08/23/19 10:21 87 08/23/19 10:19 88 08/23/19 10:00 75 80 80 80 80 80 Resp BP Pulse Ox 08/24/19 04:46 18 141/75 08/24/19 01:00 08/23/19 23:41 20 136/72 97 08/23/19 20:46 20 128/63 95 08/23/19 17:05 20 143/88 94 08/23/19 17:00 08/23/19 12:00 08/23/19 11:51 20 152/92 97 08/23/19 10:21 128/70 08/23/19 10:19 128/70 97 08/23/19 10:00 19 99 - Physical Examination HEENT: Positive: PERRL Neck: Positive: trachea midline Cardiac: Positive: Reg Rate and Rhythm Lungs: Positive: Normal Exam - Labs and Meds Coagulation 08/24/19 Range/Units 05:35 PT 14.0 (12.2-14.9) Sec. INR 1.07 (0.87-1.13) Comprehensive Metabolic Panel 08/24/19 Range/Units 05:35 Sodium 136 L (137-145) mmol/L Potassium 3.8 (3.6-5.0) mmol/L Chloride 94.6 L (98-107) mmol/L Carbon Dioxide 23 (22-30) mmol/L BUN 43 H (9-20) mg/dL Creatinine 6.7 H (0.8-1.5) mg/dL Glucose 97 (75-100) mg/dL Calcium 8.9 (8.4-10.2) mg/dL - Imaging and Cardiology EKG: report reviewed (sinus rhythm, LVH )
--- NOTE | 2019-08-24 09:59 | Cardiac Catherization Report ---
LEFT HEART CATH INDICATION FOR PROCEDURE: Unstable angina. ORDERING PHYSICIAN: Ragini Taveras M.D. PROCEDURES PERFORMED: 1. Selective left and right coronary angiography. 2. Left ventriculography. 3. Selective angiography of the saphenous vein graft to the right coronary artery. 4. Selective angiography of the ESTELITA graft to the diagonal artery. 5. Selective angiography of the NÚÑEZ graft to the LAD. DESCRIPTION OF PROCEDURE: After obtaining written consent, the patient was draped using sterile technique. A 2% lidocaine was injected into the right groin. Using micropuncture technique, a 5-Mongolian vascular sheath was inserted into the right femoral artery. A 5-Mongolian JL4 catheter was used to selectively engage left coronary. The right coronary artery was not injected knowing that the right coronary artery is previously described as occluded in 2014. A JR4 was used to selectively engage the saphenous vein graft to the distal RCA and the JR4 catheter was also used to selectively engage the NÚÑEZ graft to the diagonal artery. An TAD catheter was used to selectively engage the NÚÑEZ graft to the LAD. A JR4 catheter was used to hand inject the left ventriculogram. No complications occurred during the procedure. Hemostasis was achieved at the end of the procedure using Mynx closure device. SPECIMEN REMOVED: None. ESTIMATED BLOOD LOSS: Minimal. TOTAL SEDATION ADMINISTERED: 1 mg of IV Versed and 50 mcg of IV fentanyl. PHYSICIAN AND PATIENT FACE TO FACE SEDATION START TIME: 8:41 a.m. PHYSICIAN AND PATIENT FACE TO FACE SEDATION STOP TIME: 9:16 a.m. TOTAL SEDATION TIME: 35 minutes. FINDINGS: HEMODYNAMICS: Aortic pressure 169/84. LV systolic pressure 172 mmHg, LV end diastolic pressure 19 mmHg. No significant gradient was noted across the left ventricular outflow tract. CARDIAC STRUCTURES: The left ventricle is normal in size. Left ventricular ejection fraction is estimated at 55%. CORONARY ANATOMY: 1. This is a right dominant circulation. 2. The left main has 10-20% luminal irregularities. 3. Left anterior descending artery has evidence of nonobstructive 90% lesion in the proximal segment. The distal LAD has evidence of competitive flow from the NÚÑEZ graft. 4. The left circumflex artery has scattered 80-90% lesions in the proximal segment as well as in the posterolateral obtuse marginal. There is also an 80-90% obstruction of the proximal segment of the first obtuse marginal. 5. Right coronary artery was not injected knowing that the right coronary artery is occluded back in 2013. 6. The saphenous vein graft to the distal right coronary artery is patent with good distal vessel run-off. 7. The ESTELITA graft to the diagonal artery is patent with good distal vessel run-off. 8. The NÚÑEZ graft to the LAD is patent with good distal vessel run-off. IMPRESSION: 1. Patent SVG to RCA, patent ESTELITA graft to the diagonal artery, patent NÚÑEZ graft to the LAD. 2. Scattered obstructive 80-90% stenosis noted in the proximal circumflex as well as the posterolateral obtuse marginal in the proximal OM1. The circumflex artery was not bypassed back in 2013. 3. Normal left ventricular ejection fraction estimated at 55%. 3. LVEDP measured at 19 mmHg. RECOMMENDATIONS: Proceed with PCI to the circumflex artery on Tuesday. JOB# [id number] FLASH/MARIE
--- NOTE | 2019-08-24 11:05 | Progress Note ---
Assessment and Plan - Patient Problems (1) Chest pain at rest Current Visit: Yes Status: Acute Plan to address problem: Discussed Findings with social service coordinator. Patient will need angioplasty on Tuesday. Continue management per social service coordinator (2) Hypertensive chronic kidney disease with stage 5 chronic kidney disease or end stage renal disease Current Visit: Yes Status: Acute Plan to address problem: Follow-up blood pressure on current medications (3) End stage renal disease Current Visit: Yes Status: Acute Plan to address problem: Hemodialysis on a Tuesday, Tuesday and Tuesday schedule. Patient will be going to dialysis now post-cath. We'll arrange for dialysis on Tuesday after catheterization (4) Anemia of chronic illness Current Visit: Yes Status: Acute Plan to address problem: Continue Erythropoetin on dialysis Subjective Date of service: 08/25/19 Principal diagnosis: Unstable angina Interval history: Patient seen in [facility]. Just had procedure. Discussed with social service coordinator. Will need angioplasty on Tuesday. Objective - Exam Narrative Exam: Obese middle-aged -Faroese male lying in bed in no acute distress HEENT: NCAT, pink oral mucous membrane Neck: Supple, no venous distention CVS: S1S2 RRR with no murmur, rub or gallop Chest: Clear to auscultation Abdomen: Obese, soft, nontender, no organomegaly, bowel sounds are present Extremities: No edema Genitourinary deferred Neuro: Awake, alert no focal deficits - Vital Signs Vital signs: Vital Signs - 12hr 08/23/19 08/24/19 08/24/19 23:41 01:00 04:46 Temperature 98.7 F 98.0 F Pulse Rate 84 76 Respiratory 20 18 Rate Blood Pressure 136/72 141/75 O2 Sat by Pulse 97 Oximetry 08/24/19 08/24/19 08/24/19 09:35 09:45 10:00 Temperature 98.6 F Pulse Rate 91 H 80 76 Respiratory 19 16 16 Rate Blood Pressure 173/73 173/59 158/59 O2 Sat by Pulse 98 99 98 Oximetry 08/24/19 08/24/19 10:15 10:30 Temperature Pulse Rate 76 76 Respiratory 12 16 Rate Blood Pressure 159/61 156/70 O2 Sat by Pulse 99 99 Oximetry - Lab 08/23/19 05:19 08/24/19 05:35 Most recent lab results Calcium 8.9 mg/dL (8.4-10.2) 08/24/19 05:35 Medications & Allergies - Medications Allergies/Adverse Reactions: Allergies No Known Allergies Allergy (Unverified 08/22/19 17:54) Home Medications: Home Medications Medication Instructions Recorded Confirmed Last Taken Type B Complex 11/Folic/C/Biot/Zinc 1 each PO DAILY 08/22/19 08/22/19 08/22/19 Hist ory [Dialyvite with Zinc Tablet] Losartan Potassium 100 mg PO DAILY 08/22/19 08/22/19 08/22/19 History Sevelamer Carbonate [Renvela] 800 mg PO TIDWM 08/22/19 08/22/19 08/22/19 History carvediloL [Coreg] 6.25 mg PO BID 08/22/19 08/22/19 08/22/19 History Active Medications: Generic Name Dose Route Start Last Admin Trade Name Freq PRN Reason Stop Dose Admin Acetaminophen 650 mg 08/22/19 19:52 08/23/19 10:20 Tylenol PO 650 mg Q4H PRN Administration Pain MILD(1-3)/Fever >100.5/BOYCE Amlodipine Besylate 2.5 mg 08/24/19 10:00 Amlodipine PO QDAY [facility] Aspirin 81 mg 08/24/19 11:00 Halfprin Ec PO QDAY [facility] Atorvastatin Calcium 80 mg 08/24/19 22:00 Lipitor PO QHS [facility] Carvedilol 3.125 mg 08/24/19 11:00 Coreg PO BID [facility] Clopidogrel Bisulfate 75 mg 08/24/19 11:00 Plavix PO QDAY [facility] Heparin Sodium (Porcine) 5,000 unit 08/22/19 22:00 08/23/19 23:27 Heparin SUB-Q 5,000 unit Q12HR [facility] Administration Heparin Sodium (Porcine) 1,000 unit 08/23/19 19:44 Heparin 10,000 Units/10 Ml IV KATELYN PRN hemodialysis Hydralazine HCl 10 mg 08/22/19 22:00 Apresoline IV Q4HR PRN FOR SBP>160 AND/OR DBP>100 Sodium Chloride 100 mls @ 999 mls/hr 08/24/19 08:31 Nacl 0.9% IV KATELYN PRN Hypotension Losartan Potassium 100 mg 08/23/19 10:00 08/23/19 10:21 Cozaar PO 100 mg DAILY [facility] Administration Multivit/Ca Carb/B Cmplx/FA/Prenat 1 cap 08/23/19 10:00 08/23/19 10:21 Renal Caps PO 1 cap QDAY [facility] Administration Ondansetron HCl 4 mg 08/22/19 19:52 Zofran IV Q8H PRN Nausea And Vomiting Sevelamer Carbonate 800 mg 08/23/19 08:00 08/24/19 08:21 Renvela PO Not Given TIDWM [facility] Sodium Chloride 10 ml 08/22/19 22:00 08/23/19 23:28 Sodium Chloride Flush Syringe 10 Ml IV 10 ml BID [facility] Administration Sodium Chloride 10 ml 08/22/19 19:52 Sodium Chloride Flush Syringe 10 Ml IV PRN PRN LINE FLUSH
[2019-08-24] MEDS: LOSARTAN 50 MG TAB PO SCH (11:20)
[2019-08-24] MEDS: FOLIC ACID/VIT B COMP W-C 1 MG (RENAL CAPS) PO SCH (11:20)
[2019-08-24] MEDS: HEPARIN 5,000 UNIT/1 ML VIAL SUB-Q SCH ×2 (11:21→22:25)
[2019-08-24] MEDS: amLODIPine 5 MG TAB PO SCH (11:23)
[2019-08-24] MEDS: ASPIRIN EC 81 MG TAB PO SCH (11:30)
[2019-08-24] MEDS: CLOPIDOGREL 75 MG TAB PO SCH (11:30)
[2019-08-24] MEDS: ACETAMINOPHEN 325 MG TAB PO PRN (12:17)
[2019-08-24] MEDS: carvediloL 3.125 MG TAB PO SCH ×2 (12:22→22:25)
[2019-08-24 13:25] LABS: Hepatitis B Surface Antigen Non-Reactive (Negative); Hepatitis C Virus Antibody Non-Reactive (NonReactive)
--- NOTE | 2019-08-24 14:05 | Progress Note ---
Assessment and Plan Assessment and plan: Patient is a 58-year-old man with a history of ESRD, hypertension and CVA (2013) who presents to [facility] ED with chest pains and near syncope. He was found to have positive troponin with on going chest pains, so [facility] (in coordination) with hemodialysis is planned for today. Cardiac cath this admission - patent SVG to distal RCA; patent ESTELITA to Diagonal; patient NÚÑEZ to LAD; scattered obstructive stenosis in the proximal Cx and PLOM as well as proximal OM1 (The circumflex was not bypassed in the past). Chest pain, suspected NSTEMI vs type 2 NE -EKG; LVH -Cardiology consult, input noted -[facility] done, PCI to Circumflex on tuesday Start DAPT Start high intensity statin therapy Start anti-anginal therapy ESRD -MWF dialysis -Nephrology consult -monitor labs Hypertension -BP currently stable -Continue home meds after reconciled, adjust as needed -PRN IV hydralazine -Monitor BP q shift DVT prophylaxis -SCD to BLE while in bed -Heparin subq Coronary artery disease s/p CABG x 3 in 2013 at [facility] on Tuesday to stent Circumflex History Interval history: Patient was seen and examined. Follow-up on current diagnosis chest pains. +Recurrent Chest pains. No overnight events reported to me. Patient denies any shortness breath, nausea/vomiting or severe headaches. Imaging, nursing note, chart, labs and old chart reviewed. Discussed with patient. Hospitalist Physical - Physical exam Narrative exam: Gen: WDWN, NAD, Awake, Alert, Orientated HEENT: NCAT, EOMI, PERRL, OP Clear Neck: supple, no adenopathy, no thyromegaly, no JVD CVS/Heart: RRR, normal S1S2, pulses present bilaterally Chest/Lungs: CTA B, Symmetrical chest expansion, good air entry bilaterally GI/Abdomen: soft, NTND, good bowel sounds, no guarding or rebound /Bladder: no suprapubic tenderness, no CVA or paraspinal tenderness Extermity/Skin: no c/c/e, no obvious rash MSK: FROM x 4 Neuro: CN 2-12 grossly intact, no new focal deficits Psych: calm - Constitutional Vitals: Temp Pulse Resp BP Pulse Ox 98.1 F 89 18 153/59 99 08/24/19 12:28 08/24/19 12:28 08/24/19 12:28 08/24/19 12:28 08/24/19 12:28 General appearance: Present: no acute distress Results - Labs CBC & Chem 7: 08/23/19 05:19 08/24/19 05:35 Labs: Laboratory Last Values WBC 5.5 K/mm3 (4.5-11.0) 08/23/19 05:19 RBC 4.15 M/mm3 (3.65-5.03) 08/23/19 05:19 Hgb 12.7 gm/dl (11.8-15.2) 08/23/19 05:19 Hct 37.0 % (35.5-45.6) 08/23/19 05:19 MCV 89 fl (84-94) 08/23/19 05:19 MCH 31 pg (28-32) 08/23/19 05:19 MCHC 34 % (32-34) 08/23/19 05:19 RDW 16.6 % (13.2-15.2) H 08/23/19 05:19 Plt Count 158 K/mm3 (140-440) 08/23/19 05:19 Lymph % (Auto) 33.6 % (13.4-35.0) 08/23/19 05:19 Dukes % (Auto) 10.0 % (0.0-7.3) H 08/23/19 05:19 Eos % (Auto) 1.3 % (0.0-4.3) 08/23/19 05:19 Baso % (Auto) 0.5 % (0.0-1.8) 08/23/19 05:19 Lymph # 1.9 K/mm3 (1.2-5.4) 08/23/19 05:19 Dukes # 0.6 K/mm3 (0.0-0.8) 08/23/19 05:19 Eos # 0.1 K/mm3 (0.0-0.4) 08/23/19 05:19 Baso # 0.0 K/mm3 (0.0-0.1) 08/23/19 05:19 Seg Neutrophils % 54.6 % (40.0-70.0) 08/23/19 05:19 Seg Neutrophils # 3.0 K/mm3 (1.8-7.7) 08/23/19 05:19 PT 14.0 Sec. (12.2-14.9) 08/24/19 05:35 INR 1.07 (0.87-1.13) 08/24/19 05:35 APTT 27.6 Sec. (24.2-36.6) 08/22/19 18:38 Sodium 136 mmol/L (137-145) L 08/24/19 05:35 Potassium 3.8 mmol/L (3.6-5.0) 08/24/19 05:35 Chloride 94.6 mmol/L (98-107) L 08/24/19 05:35 Carbon Dioxide 23 mmol/L (22-30) 08/24/19 05:35 Anion Gap 22 mmol/L 08/24/19 05:35 BUN 43 mg/dL (9-20) H 08/24/19 05:35 Creatinine 6.7 mg/dL (0.8-1.5) H 08/24/19 05:35 Estimated GFR 10 ml/min 08/24/19 05:35 BUN/Creatinine Ratio 6 % 08/24/19 05:35 Glucose 97 mg/dL (75-100) 08/24/19 05:35 POC Glucose 125 (70-105) H 08/23/19 18:54 Calcium 8.9 mg/dL (8.4-10.2) 08/24/19 05:35 Total Creatine Kinase 1035 units/L (55-170) H 08/23/19 05:19 CK-MB (CK-2) 5.0 ng/mL (0.0-4.0) H 08/23/19 05:19 CK-MB (CK-2) Rel Index 0.4 (0-4) 08/23/19 05:19 Troponin T 0.044 ng/mL (0.00-0.029) H 08/23/19 05:19 Triglycerides 391 mg/dL (2-149) H 08/22/19 18:38 Cholesterol 215 mg/dL (50-199) H 08/22/19 18:38 LDL Cholesterol Direct 126 mg/dL (50-130) 08/22/19 18:38 HDL Cholesterol 37 mg/dL (40-59) L 08/22/19 18:38 Cholesterol/HDL Ratio 5.81 % 08/22/19 18:38 Hepatitis A IgM Ab Non-reactive (NonReactive) 08/24/19 12:04 Hep Bs Antigen Non-reactive (Negative) 08/24/19 12:04 Hep B Core IgM Ab Non-reactive (NonReactive) 08/24/19 12:04 Hepatitis C Antibody Non-reactive (NonReactive) 08/24/19 12:04 Active Medications - Current Medications Current Medications: Generic Name Dose Route Start Last Admin Trade Name Freq PRN Reason Stop Dose Admin Acetaminophen 650 mg 08/22/19 19:52 08/24/19 12:17 Tylenol PO 650 mg Q4H PRN Administration Pain MILD(1-3)/Fever >100.5/BOYCE Amlodipine Besylate 2.5 mg 08/24/19 10:00 08/24/19 11:23 Amlodipine PO 2.5 mg QDAY FER Administration Aspirin 81 mg 08/24/19 11:00 08/24/19 11:30 Halfprin Ec PO 81 mg QDAY FER Administration Atorvastatin Calcium 80 mg 08/24/19 22:00 Lipitor PO QHS FER Carvedilol 3.125 mg 08/24/19 11:00 08/24/19 12:22 Coreg PO 3.125 mg BID FER Administration Clopidogrel Bisulfate 75 mg 08/24/19 11:00 08/24/19 11:30 Plavix PO 75 mg QDAY FER Administration Heparin Sodium (Porcine) 5,000 unit 08/22/19 22:00 08/24/19 11:21 Heparin SUB-Q 5,000 unit Q12HR FER Administration Heparin Sodium (Porcine) 1,000 unit 08/23/19 19:44 Heparin 10,000 Units/10 Ml IV KATELYN PRN hemodialysis Hydralazine HCl 10 mg 08/22/19 22:00 Apresoline IV Q4HR PRN FOR SBP>160 AND/OR DBP>100 Sodium Chloride 100 mls @ 999 mls/hr 08/24/19 08:31 Nacl 0.9% IV KATELYN PRN Hypotension Losartan Potassium 100 mg 08/23/19 10:00 08/24/19 11:20 Cozaar PO 100 mg DAILY FER Administration Multivit/Ca Carb/B Cmplx/FA/Prenat 1 cap 08/23/19 10:00 08/24/19 11:20 Renal Caps PO 1 cap QDAY FER Administration Ondansetron HCl 4 mg 08/22/19 19:52 Zofran IV Q8H PRN Nausea And Vomiting Sevelamer Carbonate 800 mg 08/23/19 08:00 08/24/19 11:20 Renvela PO 800 mg TIDWM FER Administration Sodium Chloride 10 ml 08/22/19 22:00 08/24/19 11:21 Sodium Chloride Flush Syringe 10 Ml IV 10 ml BID FER Administration Sodium Chloride 10 ml 08/22/19 19:52 Sodium Chloride Flush Syringe 10 Ml IV PRN PRN LINE FLUSH
[2019-08-25] MEDS ORDERED: METOCLOPRAMIDE 10 MG/2 ML INJ IV ONE (01:25)
[2019-08-25] MEDS: SEVELAMER CARBONATE 800 MG TAB PO SCH ×3 (08:23→17:47)
--- NOTE | 2019-08-25 09:04 | Progress Note ---
Assessment and Plan Unstable angina Cardiac cath this admission - patent SVG to distal RCA; patent ESTELITA to Diagonal; patient NÚÑEZ to LAD; scattered obstructive stenosis in the proximal Cx and PLOM as well as proximal OM1 (The circumflex was not bypassed in the past) Coronary artery disease s/p CABG x 3 in 2014 at [facility] on HD Essential primary hypertension Nausea and vomiting Recommendations: Multilesion PCI on tuesday Monitor for N/V symptoms recurrence Subjective Date of service: 08/25/19 Principal diagnosis: Unstable angina Interval history: Patient denies chest pain but had several episodes of nausea and vomiting o vernight He denies abdominal pain Objective Vital Signs Temp Pulse Pulse Pulse Pulse Pulse Pulse 08/25/19 07:50 98.3 F 85 08/25/19 05:33 98.5 F 08/25/19 05:31 84 08/25/19 01:00 82 08/24/19 23:38 97.5 F L 88 08/24/19 23:36 08/24/19 22:25 88 08/24/19 21:30 87 08/24/19 21:25 97.5 F L 08/24/19 21:23 88 08/24/19 18:14 84 08/24/19 17:55 97.6 F 86 08/24/19 17:30 79 08/24/19 17:15 81 08/24/19 17:00 81 08/24/19 16:45 79 08/24/19 16:30 81 08/24/19 16:15 78 08/24/19 16:00 80 08/24/19 15:45 78 08/24/19 15:30 75 08/24/19 15:15 86 08/24/19 15:00 83 08/24/19 14:45 81 08/24/19 14:30 83 08/24/19 14:15 82 08/24/19 14:10 97.8 F 84 08/24/19 14:06 89 08/24/19 13:43 89 08/24/19 12:28 98.1 F 89 08/24/19 12:22 89 08/24/19 12:00 83 08/24/19 11:23 84 08/24/19 11:20 62 08/24/19 10:30 76 08/24/19 10:15 76 08/24/19 10:00 76 76 76 76 76 76 08/24/19 09:45 80 08/24/19 09:35 98.6 F 91 H Resp BP BP Pulse Ox 08/25/19 07:50 18 98/40 97 08/25/19 05:33 08/25/19 05:31 18 99/44 96 08/25/19 01:00 08/24/19 23:38 20 102/60 100 08/24/19 23:36 20 99 08/24/19 22:25 99/56 08/24/19 21:30 20 156/67 95 08/24/19 21:25 08/24/19 21:23 20 99/56 97 08/24/19 18:14 108/64 100 08/24/19 17:55 20 135/70 08/24/19 17:30 113/63 08/24/19 17:15 132/71 08/24/19 17:00 108/60 08/24/19 16:45 137/72 08/24/19 16:30 120/74 08/24/19 16:15 143/77 08/24/19 16:00 146/81 08/24/19 15:45 127/79 08/24/19 15:30 139/70 08/24/19 15:15 128/72 08/24/19 15:00 130/79 08/24/19 14:45 159/67 08/24/19 14:30 159/65 08/24/19 14:15 145/84 08/24/19 14:10 20 158/80 08/24/19 14:06 19 120/54 08/24/19 13:43 104/41 100 08/24/19 12:28 18 120/46 99 08/24/19 12:22 120/46 08/24/19 12:00 08/24/19 11:23 164/72 08/24/19 11:20 164/72 08/24/19 10:30 16 156/70 99 08/24/19 10:15 12 159/61 99 08/24/19 10:00 19 158/59 99 08/24/19 09:45 16 173/59 99 08/24/19 09:35 19 173/73 98 - Physical Examination HEENT: Positive: PERRL Neck: Positive: trachea midline Cardiac: Positive: Reg Rate and Rhythm Lungs: Positive: Normal Exam - Imaging and Cardiology EKG: report reviewed (sinus rhythm, LVH )
--- NOTE | 2019-08-25 09:36 | Progress Note ---
Assessment and Plan - Patient Problems (1) End stage renal disease Current Visit: Yes Status: Acute Plan to address problem: Cont Hemodialysis on a Tuesday, Tuesday and Tuesday schedule (2) Coronary artery disease Current Visit: Yes Status: Acute Plan to address problem: Pt s/p cardiac cath showing: patent SVG to distal RCA; patent ESTELITA to Diagonal; patient NÚÑEZ to LAD; scattered obstructive stenosis in the proximal Cx and PLOM as well as proximal OM1. pt is scheduled for multilesion PCI on Tuesday. To arrange HD after PCI (3) Anemia of chronic illness Current Visit: Yes Status: Acute Plan to address problem: Continue Erythropoetin on dialysis (4) Hypertensive chronic kidney disease with stage 5 chronic kidney disease or end stage renal disease Current Visit: Yes Status: Acute Plan to address problem: Follow-up blood pressure on current medications Subjective Date of service: 08/25/19 Principal diagnosis: Unstable angina Interval history: Pt awake, alert in no acute distress Objective - Vital Signs Vital signs: Vital Signs - 12hr 08/24/19 08/24/19 08/24/19 22:25 23:36 23:38 Temperature 97.5 F L Pulse Rate 88 88 Respiratory 20 20 Rate Blood Pressure 99/56 Blood Pressure 102/60 [Left] O2 Sat by Pulse 99 100 Oximetry 08/25/19 08/25/19 08/25/19 01:00 05:31 05:33 Temperature 98.5 F Pulse Rate 82 84 Respiratory 18 Rate Blood Pressure 99/44 Blood Pressure [Left] O2 Sat by Pulse 96 Oximetry 08/25/19 07:50 Temperature 98.3 F Pulse Rate 85 Respiratory 18 Rate Blood Pressure 98/40 Blood Pressure [Left] O2 Sat by Pulse 97 Oximetry - General Appearance General appearance: well-developed, well-nourished, appears stated age EENT: ATNC, PERRL, mucous membranes moist Neck: no JVD Respiratory: Present: Clear to Ascultation Cardiology: regular, S1S2 Gastrointestinal: normoactive bowel sounds Integumentary: no rash, other (no edema ) Neurologic: no focal deficit, alert and oriented x3, strength 5/5, CN 3-12 intact Psychiatric: mood/affect appropriate, cooperative - Lab 08/23/19 05:19 08/24/19 05:35 Most recent lab results Calcium 8.9 mg/dL (8.4-10.2) 08/24/19 05:35 Medications & Allergies - Medications Allergies/Adverse Reactions: Allergies No Known Allergies Allergy (Unverified 08/22/19 17:54) Home Medications: Home Medications Medication Instructions Recorded Confirmed Last Taken Type B Complex 11/Folic/C/Biot/Zinc 1 each PO DAILY 08/22/19 08/22/19 08/22/19 Hist ory [Dialyvite with Zinc Tablet] Losartan Potassium 100 mg PO DAILY 08/22/19 08/22/19 08/22/19 History Sevelamer Carbonate [Renvela] 800 mg PO TIDWM 08/22/19 08/22/19 08/22/19 History carvediloL [Coreg] 6.25 mg PO BID 08/22/19 08/22/19 08/22/19 History Active Medications: Generic Name Dose Route Start Last Admin Trade Name Freq PRN Reason Stop Dose Admin Acetaminophen 650 mg 08/22/19 19:52 08/24/19 12:17 Tylenol PO 650 mg Q4H PRN Administration Pain MILD(1-3)/Fever >100.5/BOYCE Amlodipine Besylate 2.5 mg 08/24/19 10:00 08/24/19 11:23 Amlodipine PO 2.5 mg QDAY FER Administration Aspirin 81 mg 08/24/19 11:00 08/24/19 11:30 Halfprin Ec PO 81 mg QDAY FER Administration Atorvastatin Calcium 80 mg 08/24/19 22:00 08/24/19 22:25 Lipitor PO 80 mg QHS FER Administration Carvedilol 3.125 mg 08/24/19 11:00 08/24/19 22:25 Coreg PO Not Given BID FER Clopidogrel Bisulfate 75 mg 08/24/19 11:00 08/24/19 11:30 Plavix PO 75 mg QDAY FER Administration Heparin Sodium (Porcine) 5,000 unit 08/22/19 22:00 08/24/19 22:25 Heparin SUB-Q Not Given Q12HR FER Heparin Sodium (Porcine) 1,000 unit 08/23/19 19:44 Heparin 10,000 Units/10 Ml IV KATELYN PRN hemodialysis Hydralazine HCl 10 mg 08/22/19 22:00 Apresoline IV Q4HR PRN FOR SBP>160 AND/OR DBP>100 Sodium Chloride 100 mls @ 999 mls/hr 12/20/19 08:31 Nacl 0.9% IV KATELYN PRN Hypotension Multivit/Ca Carb/B Cmplx/FA/Prenat 1 cap 08/23/19 10:00 08/24/19 11:20 Renal Caps PO 1 cap QDAY FER Administration Ondansetron HCl 4 mg 08/22/19 19:52 08/24/19 21:36 Zofran IV 4 mg Q8H PRN Administration Nausea And Vomiting Sevelamer Carbonate 800 mg 08/23/19 08:00 08/25/19 08:23 Renvela PO 800 mg TIDWM FER Administration Sodium Chloride 10 ml 08/22/19 22:00 08/24/19 22:25 Sodium Chloride Flush Syringe 10 Ml IV 10 ml BID FER Administration Sodium Chloride 10 ml 08/22/19 19:52 08/25/19 01:40 Sodium Chloride Flush Syringe 10 Ml IV 10 ml PRN PRN Administration LINE FLUSH
[2019-08-25] MEDS: amLODIPine 5 MG TAB PO SCH (10:15)
[2019-08-25] MEDS: CLOPIDOGREL 75 MG TAB PO SCH (10:15)
[2019-08-25] MEDS: ASPIRIN EC 81 MG TAB PO SCH (10:15)
[2019-08-25] MEDS: FOLIC ACID/VIT B COMP W-C 1 MG (RENAL CAPS) PO SCH (10:15)
[2019-08-25] MEDS: HEPARIN 5,000 UNIT/1 ML VIAL SUB-Q SCH ×2 (10:15→22:41)
[2019-08-25] MEDS: carvediloL 3.125 MG TAB PO SCH ×2 (10:16→22:42)
--- NOTE | 2019-08-25 12:41 | Progress Note ---
Assessment and Plan Assessment and plan: Patient is a 58-year-old man with a history of ESRD, hypertension and CVA (2013) who presents to [facility] ED with chest pains and near syncope. He was found to have positive troponin with on going chest pains, so [facility] (in coordination) with hemodialysis is planned for today. Cardiac cath this admission - patent SVG to distal RCA; patent ESTELITA to Diagonal; patient NÚÑEZ to LAD; scattered obstructive stenosis in the proximal Cx and PLOM as well as proximal OM1 (The circumflex was not bypassed in the past). Chest pain, suspected NSTEMI vs type 2 PR -EKG; LVH -Cardiology consult, input noted -[facility] done, PCI to Circumflex on tuesday Start DAPT Start high intensity statin therapy Start anti-anginal therapy ESRD -MWF dialysis -Nephrology consult -monitor labs Hypertension -BP currently stable -Continue home meds after reconciled, adjust as needed -PRN IV hydralazine -Monitor BP q shift DVT prophylaxis -SCD to BLE while in bed -Heparin subq Coronary artery disease s/p CABG x 3 in 2013 at [facility] on Tuesday to stent Circumflex History Interval history: Patient was seen and examined. Follow-up on current diagnosis chest pains. +Recurrent Chest pains. No overnight events reported to me. Patient denies any shortness breath, nausea/vomiting or severe headaches. Imaging, nursing note, chart, labs and old chart reviewed. Discussed with patient. Hospitalist Physical - Physical exam Narrative exam: Gen: WDWN, NAD, Awake, Alert, Orientated HEENT: NCAT, EOMI, PERRL, OP Clear Neck: supple, no adenopathy, no thyromegaly, no JVD CVS/Heart: RRR, normal S1S2, pulses present bilaterally Chest/Lungs: CTA B, Symmetrical chest expansion, good air entry bilaterally GI/Abdomen: soft, NTND, good bowel sounds, no guarding or rebound /Bladder: no suprapubic tenderness, no CVA or paraspinal tenderness Extermity/Skin: no c/c/e, no obvious rash MSK: FROM x 4 Neuro: CN 2-12 grossly intact, no new focal deficits Psych: calm - Constitutional Vitals: Temp Pulse Resp BP Pulse Ox 98.3 F 85 18 98/40 97 08/25/19 07:50 08/25/19 07:50 08/25/19 07:50 08/25/19 07:50 08/25/19 07:50 General appearance: Present: no acute distress Results - Labs CBC & Chem 7: 08/23/19 05:19 08/24/19 05:35 Labs: Laboratory Last Values WBC 5.5 K/mm3 (4.5-11.0) 08/23/19 05:19 RBC 4.15 M/mm3 (3.65-5.03) 08/23/19 05:19 Hgb 12.7 gm/dl (11.8-15.2) 08/23/19 05:19 Hct 37.0 % (35.5-45.6) 08/23/19 05:19 MCV 89 fl (84-94) 08/23/19 05:19 MCH 31 pg (28-32) 08/23/19 05:19 MCHC 34 % (32-34) 08/23/19 05:19 RDW 16.6 % (13.2-15.2) H 08/23/19 05:19 Plt Count 158 K/mm3 (140-440) 08/23/19 05:19 Lymph % (Auto) 33.6 % (13.4-35.0) 08/23/19 05:19 Ogle % (Auto) 10.0 % (0.0-7.3) H 08/23/19 05:19 Eos % (Auto) 1.3 % (0.0-4.3) 08/23/19 05:19 Baso % (Auto) 0.5 % (0.0-1.8) 08/23/19 05:19 Lymph # 1.9 K/mm3 (1.2-5.4) 08/23/19 05:19 Ogle # 0.6 K/mm3 (0.0-0.8) 08/23/19 05:19 Eos # 0.1 K/mm3 (0.0-0.4) 08/23/19 05:19 Baso # 0.0 K/mm3 (0.0-0.1) 08/23/19 05:19 Seg Neutrophils % 54.6 % (40.0-70.0) 08/23/19 05:19 Seg Neutrophils # 3.0 K/mm3 (1.8-7.7) 08/23/19 05:19 PT 14.0 Sec. (12.2-14.9) 08/24/19 05:35 INR 1.07 (0.87-1.13) 08/24/19 05:35 APTT 27.6 Sec. (24.2-36.6) 08/22/19 18:38 Sodium 136 mmol/L (137-145) L 08/24/19 05:35 Potassium 3.8 mmol/L (3.6-5.0) 08/24/19 05:35 Chloride 94.6 mmol/L (98-107) L 08/24/19 05:35 Carbon Dioxide 23 mmol/L (22-30) 08/24/19 05:35 Anion Gap 22 mmol/L 08/24/19 05:35 BUN 43 mg/dL (9-20) H 08/24/19 05:35 Creatinine 6.7 mg/dL (0.8-1.5) H 08/24/19 05:35 Estimated GFR 10 ml/min 08/24/19 05:35 BUN/Creatinine Ratio 6 % 08/24/19 05:35 Glucose 97 mg/dL (75-100) 08/24/19 05:35 POC Glucose 125 (70-105) H 08/23/19 18:54 Calcium 8.9 mg/dL (8.4-10.2) 08/24/19 05:35 Total Creatine Kinase 1035 units/L (55-170) H 08/23/19 05:19 CK-MB (CK-2) 5.0 ng/mL (0.0-4.0) H 08/23/19 05:19 CK-MB (CK-2) Rel Index 0.4 (0-4) 08/23/19 05:19 Troponin T 0.044 ng/mL (0.00-0.029) H 08/23/19 05:19 Triglycerides 391 mg/dL (2-149) H 08/22/19 18:38 Cholesterol 215 mg/dL (50-199) H 08/22/19 18:38 LDL Cholesterol Direct 126 mg/dL (50-130) 08/22/19 18:38 HDL Cholesterol 37 mg/dL (40-59) L 08/22/19 18:38 Cholesterol/HDL Ratio 5.81 % 08/22/19 18:38 Hepatitis A IgM Ab Non-reactive (NonReactive) 08/24/19 12:04 Hep Bs Antigen Non-reactive (Negative) 08/24/19 12:04 Hep B Core IgM Ab Non-reactive (NonReactive) 08/24/19 12:04 Hepatitis C Antibody Non-reactive (NonReactive) 08/24/19 12:04 Active Medications - Current Medications Current Medications: Generic Name Dose Route Start Last Admin Trade Name Freq PRN Reason Stop Dose Admin Acetaminophen 650 mg 08/22/19 19:52 08/24/19 12:17 Tylenol PO 650 mg Q4H PRN Administration Pain MILD(1-3)/Fever >100.5/BOYCE Amlodipine Besylate 2.5 mg 08/24/19 10:00 08/25/19 10:15 Amlodipine PO 2.5 mg QDAY FER Administration Aspirin 81 mg 08/24/19 11:00 08/25/19 10:15 Halfprin Ec PO 81 mg QDAY FER Administration Atorvastatin Calcium 80 mg 08/24/19 22:00 08/24/19 22:25 Lipitor PO 80 mg QHS FER Administration Carvedilol 3.125 mg 08/24/19 11:00 08/25/19 10:16 Coreg PO 3.125 mg BID FER Administration Clopidogrel Bisulfate 75 mg 08/24/19 11:00 08/25/19 10:15 Plavix PO 75 mg QDAY FER Administration Heparin Sodium (Porcine) 5,000 unit 08/22/19 22:00 08/25/19 10:15 Heparin SUB-Q 5,000 unit Q12HR FER Administration Heparin Sodium (Porcine) 1,000 unit 08/23/19 19:44 Heparin 10,000 Units/10 Ml IV KATELYN PRN hemodialysis Hydralazine HCl 10 mg 08/22/19 22:00 Apresoline IV Q4HR PRN FOR SBP>160 AND/OR DBP>100 Sodium Chloride 100 mls @ 999 mls/hr 08/24/19 08:31 Nacl 0.9% IV KATELYN PRN Hypotension Multivit/Ca Carb/B Cmplx/FA/Prenat 1 cap 08/23/19 10:00 08/25/19 10:15 Renal Caps PO 1 cap QDAY FER Administration Ondansetron HCl 4 mg 08/22/19 19:52 08/24/19 21:36 Zofran IV 4 mg Q8H PRN Administration Nausea And Vomiting Sevelamer Carbonate 800 mg 08/23/19 08:00 08/25/19 08:23 Renvela PO 800 mg TIDWM FER Administration Sodium Chloride 10 ml 08/22/19 22:00 08/24/19 22:25 Sodium Chloride Flush Syringe 10 Ml IV 10 ml BID FER Administration Sodium Chloride 10 ml 08/22/19 19:52 08/25/19 01:40 Sodium Chloride Flush Syringe 10 Ml IV 10 ml PRN PRN Administration LINE FLUSH
[2019-08-26] MEDS: HEPARIN 5,000 UNIT/1 ML VIAL SUB-Q SCH ×2 (09:37→21:58)
[2019-08-26] MEDS: amLODIPine 5 MG TAB PO SCH (09:37)
[2019-08-26] MEDS: ASPIRIN EC 81 MG TAB PO SCH (09:37)
[2019-08-26] MEDS: CLOPIDOGREL 75 MG TAB PO SCH (09:37)
[2019-08-26] MEDS: SEVELAMER CARBONATE 800 MG TAB PO SCH ×3 (09:37→17:51)
[2019-08-26] MEDS: FOLIC ACID/VIT B COMP W-C 1 MG (RENAL CAPS) PO SCH (09:37)
[2019-08-26] MEDS: carvediloL 3.125 MG TAB PO SCH ×2 (09:37→21:57)
--- NOTE | 2019-08-26 09:42 | Progress Note ---
Assessment and Plan Unstable angina Cardiac cath this admission - patent SVG to distal RCA; patent ESTELITA to Diagonal; patient NÚÑEZ to LAD; scattered obstructive stenosis in the proximal Cx and PLOM as well as proximal OM1 (The circumflex was not bypassed in the past) Coronary artery disease s/p CABG x 3 in 2014 at [place] ESR[facility] on HD Essential primary hypertension Nausea and vomiting Recommendations: Multilesion PCI on tuesday Subjective Date of service: 08/26/19 Principal diagnosis: Unstable angina Interval history: Doing well No events overnight Objective Vital Signs Temp Pulse Pulse Pulse Pulse Resp BP 08/26/19 08:54 97.5 F L 18 117/78 08/26/19 04:32 98.5 F 08/26/19 04:31 85 18 113/70 08/26/19 01:00 85 08/25/19 23:52 98.4 F 08/25/19 23:51 86 18 116/72 08/25/19 22:42 90 91/48 08/25/19 22:00 86 87 87 18 08/25/19 19:59 98.5 F 08/25/19 19:58 87 18 118/68 08/25/19 18:08 98.3 F 18 95/36 08/25/19 17:00 89 08/25/19 13:04 97.3 F L 79 18 114/49 08/25/19 10:00 Pulse Ox 08/26/19 08:54 08/26/19 04:32 08/26/19 04:31 97 08/26/19 01:00 08/25/19 23:52 08/25/19 23:51 97 08/25/19 22:42 08/25/19 22:00 98 08/25/19 19:59 08/25/19 19:58 98 08/25/19 18:08 08/25/19 17:00 08/25/19 13:04 100 08/25/19 10:00 98 - Physical Examination HEENT: Positive: PERRL Neck: Positive: trachea midline Cardiac: Positive: Reg Rate and Rhythm Lungs: Positive: Normal Exam - Imaging and Cardiology EKG: report reviewed (sinus rhythm, LVH )
--- NOTE | 2019-08-26 11:16 | Progress Note ---
Assessment and Plan Assessment and plan: Patient is a 58-year-old man with a history of ESRD, hypertension and CVA (2013) who presents to [facility] ED with chest pains and near syncope. He was found to have positive troponin with on going chest pains, so [facility] (in coordination) with hemodialysis is planned for today. Cardiac cath this admission - patent SVG to distal RCA; patent ESTELITA to Diagonal; patient NÚÑEZ to LAD; scattered obstructive stenosis in the proximal Cx and PLOM as well as proximal OM1 (The circumflex was not bypassed in the past). Chest pain, suspected NSTEMI vs type 2 NV -EKG; LVH -Cardiology consult, input noted -[facility] done, PCI to Circumflex on tuesday Start DAPT Start high intensity statin therapy Start anti-anginal therapy ESRD -MWF dialysis -Nephrology consult -monitor labs Hypertension -BP currently stable -Continue home meds after reconciled, adjust as needed -PRN IV hydralazine -Monitor BP q shift DVT prophylaxis -SCD to BLE while in bed -Heparin subq Coronary artery disease s/p CABG x 3 in 2013 at [facility] on Tuesday History Interval history: Patient was seen and examined. Follow-up on current diagnosis chest pains. +Recurrent Chest pains. No overnight events reported to me. Patient denies any shortness breath, nausea/vomiting or severe headaches. Imaging, nursing note, chart, labs and old chart reviewed. Discussed with patient. Hospitalist Physical - Physical exam Narrative exam: Gen: WDWN, NAD, Awake, Alert, Orientated HEENT: NCAT, EOMI, PERRL, OP Clear Neck: supple, no adenopathy, no thyromegaly, no JVD CVS/Heart: RRR, normal S1S2, pulses present bilaterally Chest/Lungs: CTA B, Symmetrical chest expansion, good air entry bilaterally GI/Abdomen: soft, NTND, good bowel sounds, no guarding or rebound /Bladder: no suprapubic tenderness, no CVA or paraspinal tenderness Extermity/Skin: no c/c/e, no obvious rash MSK: FROM x 4 Neuro: CN 2-12 grossly intact, no new focal deficits Psych: calm - Constitutional Vitals: Temp Pulse Resp BP Pulse Ox 97.5 F L 82 18 117/78 97 08/26/19 08:54 08/26/19 10:00 08/26/19 08:54 08/26/19 08:54 08/26/19 04:31 General appearance: Present: no acute distress Results - Labs CBC & Chem 7: 08/23/19 05:19 08/24/19 05:35 Labs: Laboratory Last Values WBC 5.5 K/mm3 (4.5-11.0) 08/23/19 05:19 RBC 4.15 M/mm3 (3.65-5.03) 08/23/19 05:19 Hgb 12.7 gm/dl (11.8-15.2) 08/23/19 05:19 Hct 37.0 % (35.5-45.6) 08/23/19 05:19 MCV 89 fl (84-94) 08/23/19 05:19 MCH 31 pg (28-32) 08/23/19 05:19 MCHC 34 % (32-34) 08/23/19 05:19 RDW 16.6 % (13.2-15.2) H 08/23/19 05:19 Plt Count 158 K/mm3 (140-440) 08/23/19 05:19 Lymph % (Auto) 33.6 % (13.4-35.0) 08/23/19 05:19 [place] % (Auto) 10.0 % (0.0-7.3) H 08/23/19 05:19 Eos % (Auto) 1.3 % (0.0-4.3) 08/23/19 05:19 Baso % (Auto) 0.5 % (0.0-1.8) 08/23/19 05:19 Lymph # 1.9 K/mm3 (1.2-5.4) 08/23/19 05:19 [place] # 0.6 K/mm3 (0.0-0.8) 08/23/19 05:19 Eos # 0.1 K/mm3 (0.0-0.4) 08/23/19 05:19 Baso # 0.0 K/mm3 (0.0-0.1) 08/23/19 05:19 Seg Neutrophils % 54.6 % (40.0-70.0) 08/23/19 05:19 Seg Neutrophils # 3.0 K/mm3 (1.8-7.7) 08/23/19 05:19 PT 14.0 Sec. (12.2-14.9) 08/24/19 05:35 INR 1.07 (0.87-1.13) 08/24/19 05:35 APTT 27.6 Sec. (24.2-36.6) 08/22/19 18:38 Sodium 136 mmol/L (137-145) L 08/24/19 05:35 Potassium 3.8 mmol/L (3.6-5.0) 08/24/19 05:35 Chloride 94.6 mmol/L (98-107) L 08/24/19 05:35 Carbon Dioxide 23 mmol/L (22-30) 08/24/19 05:35 Anion Gap 22 mmol/L 08/24/19 05:35 BUN 43 mg/dL (9-20) H 08/24/19 05:35 Creatinine 6.7 mg/dL (0.8-1.5) H 08/24/19 05:35 Estimated GFR 10 ml/min 08/24/19 05:35 BUN/Creatinine Ratio 6 % 08/24/19 05:35 Glucose 97 mg/dL (75-100) 08/24/19 05:35 POC Glucose 125 (70-105) H 08/23/19 18:54 Calcium 8.9 mg/dL (8.4-10.2) 08/24/19 05:35 Total Creatine Kinase 1035 units/L (55-170) H 08/23/19 05:19 CK-MB (CK-2) 5.0 ng/mL (0.0-4.0) H 08/23/19 05:19 CK-MB (CK-2) Rel Index 0.4 (0-4) 08/23/19 05:19 Troponin T 0.044 ng/mL (0.00-0.029) H 08/23/19 05:19 Triglycerides 391 mg/dL (2-149) H 08/22/19 18:38 Cholesterol 215 mg/dL (50-199) H 08/22/19 18:38 LDL Cholesterol Direct 126 mg/dL (50-130) 08/22/19 18:38 HDL Cholesterol 37 mg/dL (40-59) L 08/22/19 18:38 Cholesterol/HDL Ratio 5.81 % 08/22/19 18:38 Hepatitis A IgM Ab Non-reactive (NonReactive) 08/24/19 12:04 Hep Bs Antigen Non-reactive (Negative) 08/24/19 12:04 Hep B Core IgM Ab Non-reactive (NonReactive) 08/24/19 12:04 Hepatitis C Antibody Non-reactive (NonReactive) 08/24/19 12:04 Active Medications - Current Medications Current Medications: Generic Name Dose Route Start Last Admin Trade Name Freq PRN Reason Stop Dose Admin Acetaminophen 650 mg 08/22/19 19:52 08/24/19 12:17 Tylenol PO 650 mg Q4H PRN Administration Pain MILD(1-3)/Fever >100.5/BOYCE Amlodipine Besylate 2.5 mg 08/24/19 10:00 08/26/19 09:37 Amlodipine PO 2.5 mg QDAY FER Administration Aspirin 81 mg 08/24/19 11:00 08/26/19 09:37 Halfprin Ec PO 81 mg QDAY FER Administration Atorvastatin Calcium 80 mg 08/24/19 22:00 08/25/19 22:41 Lipitor PO 80 mg QHS FER Administration Carvedilol 3.125 mg 08/24/19 11:00 08/26/19 09:37 Coreg PO 3.125 mg BID FER Administration Clopidogrel Bisulfate 75 mg 08/24/19 11:00 08/26/19 09:37 Plavix PO 75 mg QDAY FER Administration Fluticasone Propionate 100 mcg 08/26/19 10:00 Flonase NS QDAY FER Heparin Sodium (Porcine) 5,000 unit 08/22/19 22:00 08/26/19 09:37 Heparin SUB-Q 5,000 unit Q12HR FER Administration Heparin Sodium (Porcine) 1,000 unit 08/23/19 19:44 Heparin 10,000 Units/10 Ml IV KATELYN PRN hemodialysis Hydralazine HCl 10 mg 08/22/19 22:00 Apresoline IV Q4HR PRN FOR SBP>160 AND/OR DBP>100 Sodium Chloride 100 mls @ 999 mls/hr 08/24/19 08:31 Nacl 0.9% IV KATELYN PRN Hypotension Multivit/Ca Carb/B Cmplx/FA/Prenat 1 cap 08/23/19 10:00 08/26/19 09:37 Renal Caps PO 1 cap QDAY FER Administration Ondansetron HCl 4 mg 08/22/19 19:52 08/24/19 21:36 Zofran IV 4 mg Q8H PRN Administration Nausea And Vomiting Sevelamer Carbonate 800 mg 08/23/19 08:00 08/26/19 09:37 Renvela PO 800 mg TIDWM FER Administration Sodium Chloride 10 ml 08/22/19 22:00 08/26/19 09:38 Sodium Chloride Flush Syringe 10 Ml IV 10 ml BID FER Administration Sodium Chloride 10 ml 08/22/19 19:52 08/25/19 01:40 Sodium Chloride Flush Syringe 10 Ml IV 10 ml PRN PRN Administration LINE FLUSH
[2019-08-26] MEDS: FLUTICASONE PROPIONATE NASAL SPRAY 16 GM NS SCH (15:15)
--- NOTE | 2019-08-26 16:54 | Progress Note ---
Assessment and Plan - Patient Problems (1) End stage renal disease Current Visit: Yes Status: Acute Plan to address problem: Cont Hemodialysis on a Tuesday, Tuesday and Tuesday schedule (2) Coronary artery disease Current Visit: Yes Status: Acute Plan to address problem: Pt s/p cardiac cath showing: patent SVG to distal RCA; patent ESTELITA to Diagonal; patient NÚÑEZ to LAD; scattered obstructive stenosis in the proximal Cx and PLOM as well as proximal OM1. pt is scheduled for multilesion PCI on Tuesday. To arrange HD after PCI (3) Anemia of chronic illness Current Visit: Yes Status: Acute Plan to address problem: Continue Erythropoetin on dialysis (4) Hypertensive chronic kidney disease with stage 5 chronic kidney disease or end stage renal disease Current Visit: Yes Status: Acute Plan to address problem: Follow-up blood pressure on current medications Subjective Date of service: 08/26/19 Principal diagnosis: Unstable angina Interval history: Pt awake, alert in no acute distress Objective - Vital Signs Vital signs: Vital Signs - 12hr 08/26/19 08/26/19 08:54 10:00 Temperature 97.5 F L Pulse Rate 82 Respiratory 18 Rate Blood Pressure 117/78 - General Appearance General appearance: well-developed, well-nourished, appears stated age EENT: ATNC, PERRL, mucous membranes moist Neck: no JVD Respiratory: Present: Clear to Ascultation Cardiology: regular, S1S2 Gastrointestinal: normoactive bowel sounds Integumentary: no rash, other (no edema ) Neurologic: no focal deficit, alert and oriented x3, strength 5/5, CN 3-12 intact Psychiatric: mood/affect appropriate, cooperative - Lab 08/23/19 05:19 08/24/19 05:35 Most recent lab results Calcium 8.9 mg/dL (8.4-10.2) 08/24/19 05:35 Medications & Allergies - Medications Allergies/Adverse Reactions: Allergies No Known Allergies Allergy (Unverified 08/22/19 17:54) Home Medications: Home Medications Medication Instructions Recorded Confirmed Last Taken Type B Complex 11/Folic/C/Biot/Zinc 1 each PO DAILY 08/22/19 08/22/19 08/22/19 History [Dialyvite with Zinc Tablet] Losartan Potassium 100 mg PO DAILY 08/22/19 08/22/19 08/22/19 History Sevelamer Carbonate [Renvela] 800 mg PO TIDWM 08/22/19 08/22/19 08/22/19 History carvediloL [Coreg] 6.25 mg PO BID 08/22/19 08/22/19 08/22/19 History Active Medications: Generic Name Dose Route Start Last Admin Trade Name Freq PRN Reason Stop Dose Admin Acetaminophen 650 mg 08/22/19 19:52 08/24/19 12:17 Tylenol PO 650 mg Q4H PRN Administration Pain MILD(1-3)/Fever >100.5/BOYCE Amlodipine Besylate 2.5 mg 08/24/19 10:00 08/26/19 09:37 Amlodipine PO 2.5 mg QDAY FER Administration Aspirin 81 mg 08/24/19 11:00 08/26/19 09:37 Halfprin Ec PO 81 mg QDAY FER Administration Atorvastatin Calcium 80 mg 08/24/19 22:00 08/25/19 22:41 Lipitor PO 80 mg QHS FER Administration Carvedilol 3.125 mg 08/24/19 11:00 08/26/19 09:37 Coreg PO 3.125 mg BID FER Administration Clopidogrel Bisulfate 75 mg 08/24/19 11:00 08/26/19 09:37 Plavix PO 75 mg QDAY FER Administration Fluticasone Propionate 100 mcg 08/26/19 10:00 08/26/19 15:15 Flonase NS Not Given QDAY FER Heparin Sodium (Porcine) 5,000 unit 08/22/19 22:00 08/26/19 09:37 Heparin SUB-Q 5,000 unit Q12HR FER Administration Heparin Sodium (Porcine) 1,000 unit 08/23/19 19:44 Heparin 10,000 Units/10 Ml IV KATELYN PRN hemodialysis Hydralazine HCl 10 mg 08/22/19 22:00 Apresoline IV Q4HR PRN FOR SBP>160 AND/OR DBP>100 Sodium Chloride 100 mls @ 999 mls/hr 08/24/19 08:31 Nacl 0.9% IV KATELYN PRN Hypotension Multivit/Ca Carb/B Cmplx/FA/Prenat 1 cap 08/23/19 10:00 08/26/19 09:37 Renal Caps PO 1 cap QDAY FER Administration Ondansetron HCl 4 mg 08/22/19 19:52 08/24/19 21:36 Zofran IV 4 mg Q8H PRN Administration Nausea And Vomiting Sevelamer Carbonate 800 mg 08/23/19 08:00 08/26/19 15:15 Renvela PO Not Given TIDWM FER Sodium Chloride 10 ml 08/22/19 22:00 08/26/19 09:38 Sodium Chloride Flush Syringe 10 Ml IV 10 ml BID FER Administration Sodium Chloride 10 ml 08/22/19 19:52 08/25/19 01:40 Sodium Chloride Flush Syringe 10 Ml IV 10 ml PRN PRN Administration LINE FLUSH
[2019-08-27 01:09] LABS: Basophils % (Auto) 0.6 % (0.0-1.8); Eosinophils # (Auto) 0.1 K/mm3 (0.0-0.4); Eosinophils % (Auto) 2.3 % (0.0-4.3); Hematocrit 33.4 % (35.5-45.6); Hemoglobin 11.5 gm/dl (11.8-15.2); Lymphocytes # (Auto) 1.9 K/mm3 (1.2-5.4); Lymphocytes % (Auto) 37.1 % (13.4-35.0); Mean Corpuscular HGB Conc 34 % (32-34); Mean Corpuscular Volume 89 fl (84-94); Monocytes # (Auto) 0.5 K/mm3 (0.0-0.8); Monocytes % (Auto) 9.3 % (0.0-7.3); Platelet Count 146 K/mm3 (140-440); Red Blood Count 3.76 M/mm3 (3.65-5.03); Red Cell Distribution Width 16.2 % (13.2-15.2)
[2019-08-27 01:19] LABS: INR 0.9 (0.87-1.13)
[2019-08-27 01:26] LABS: Calcium 8.4 mg/dL (8.4-10.2)
[2019-08-27 06:35] LABS: Hematocrit 34.9 % (35.5-45.6); Hemoglobin 11.6 gm/dl (11.8-15.2); Mean Corpuscular HGB Conc 33 % (32-34); Mean Corpuscular Volume 90 fl (84-94); Platelet Count 140 K/mm3 (140-440); Red Blood Count 3.88 M/mm3 (3.65-5.03); Red Cell Distribution Width 16.1 % (13.2-15.2)
[2019-08-27] MEDS ORDERED: HEPARIN/NS 5000 UNIT/500ML 1,000 ML IR ONE (06:36)
[2019-08-27] MEDS ORDERED: HEPARIN 10,000 UNITS/10 ML VIAL ONE ×2 (06:36→07:21)
[2019-08-27] MEDS ORDERED: MIDAZOLAM 2 MG/2 ML INJ ONE ×2 (06:37→07:12)
[2019-08-27] MEDS ORDERED: fentaNYL 100 MCG/2 ML INJ ONE (06:37)
[2019-08-27] MEDS ORDERED: NITROGLYCERIN SYRINGE 3 ML ONE (06:37)
[2019-08-27] MEDS ORDERED: LIDOCAINE (2%) 20 MG/1 ML VIAL 20 ML MDV INFILTRATI ONE (06:37)
[2019-08-27] MEDS ORDERED: SODIUM CHLORIDE 0.9% 250ML 250 ML ONE (06:40)
[2019-08-27 06:44] LABS: INR 0.93 (0.87-1.13)
[2019-08-27 06:50] LABS: Calcium 8.6 mg/dL (8.4-10.2)
[2019-08-27] MEDS ORDERED: HEPARIN/NS 5000 UNIT/500ML 500 ML IR ONE (07:21)
[2019-08-27] MEDS ORDERED: ONDANSETRON 4 MG/2 ML INJ ONE (07:45)
--- NOTE | 2019-08-27 07:47 | Progress Note ---
Assessment and Plan Unstable angina Cardiac cath this admission - patent SVG to distal RCA; patent ESTELITA to Diagonal; patient NÚÑEZ to LAD; scattered obstructive stenosis in the proximal Cx and PLOM as well as proximal OM1 (The circumflex was not bypassed in the past) Coronary artery disease s/p CABG x 3 in 2013 at [place] ESRD on HD Essential primary hypertension Nausea and vomiting Recommendations: S/P PCI of the LCx and OM today Continue DAPT and aggressive medical therapy Dialysis post procedure DC home tomorrow on aspirin plavix beta blockers and high intensity statins Subjective Date of service: 08/27/19 Principal diagnosis: Unstable angina Interval history: No further chest pain Objective Vital Signs Temp Pulse Pulse Resp BP Pulse Ox 08/27/19 03:04 98.2 F 87 16 114/63 99 08/26/19 23:02 98.5 F 91 H 16 128/53 95 08/26/19 22:15 91 H 18 100 08/26/19 21:57 91 H 130/50 08/26/19 20:28 81 08/26/19 20:02 98.4 F 91 H 6 L 130/50 100 08/26/19 16:46 98.0 F 18 161/72 08/26/19 10:00 82 08/26/19 08:54 97.5 F L 18 117/78 - Physical Examination HEENT: Positive: PERRL, Normocephaly Neck: Positive: trachea midline Cardiac: Positive: Reg Rate and Rhythm Lungs: Positive: Normal Exam Neuro: Positive: Grossly Intact Abdomen: Positive: Unremarkable Extremities: Present: normal, lower extr. pulses - Labs and Meds Coagulation 08/27/19 08/27/19 Range/Units 00:38 06:03 PT 12.2 12.6 (12.2-14.9) Sec. INR 0.90 0.93 (0.87-1.13) CBC 08/27/19 08/27/19 Range/Units 00:38 06:03 WBC 5.0 4.4 L (4.5-11.0) K/mm3 RBC 3.76 3.88 (3.65-5.03) M/mm3 Hgb 11.5 L 11.6 L (11.8-15.2) gm/dl Hct 33.4 L 34.9 L (35.5-45.6) % Plt Count 146 140 (140-440) K/mm3 Lymph # 1.9 (1.2-5.4) K/mm3 [place] # 0.5 (0.0-0.8) K/mm3 Eos # 0.1 (0.0-0.4) K/mm3 Baso # 0.0 (0.0-0.1) K/mm3 Comprehensive Metabolic Panel 08/27/19 08/27/19 Range/Units 00:38 06:03 Sodium 133 L 134 L (137-145) mmol/L Potassium 3.6 3.7 (3.6-5.0) mmol/L Chloride 92.8 L 92.4 L (98-107) mmol/L Carbon Dioxide 24 25 (22-30) mmol/L BUN 56 H 57 H (9-20) mg/dL Creatinine 7.6 H 7.7 H (0.8-1.5) mg/dL Glucose 130 H 99 (75-100) mg/dL Calcium 8.4 8.6 (8.4-10.2) mg/dL - Imaging and Cardiology EKG: report reviewed (sinus rhythm, LVH )
[2019-08-27] MEDS ORDERED: CLOPIDOGREL 75 MG TAB ONE (08:05)
[2019-08-27] MEDS ORDERED: ALUM-MAG HYDROXIDE-SIMETHICONE 200-200-20MG/5ML ORAL LIQD 30 ML ONE (08:15)
--- NOTE | 2019-08-27 08:19 | Cardiac Catherization Report ---
PERCUTANEOUS CORONARY INTERVENTION REPORT PROCEDUREs PERFORMED: 1. Selective left coronary angiogram. 2. Successful PCI of the mid circumflex and proximal OM1. LINE CAMERA OPERATOR: En Rivera MD REFERRING PHYSICIAN: Dr. Jimenes INDICATION: Unstable angina. PROCEDURE IN DETAIL: Informed consent was obtained from the patient. The patient was cleaned and draped in the usual sterile fashion. After infiltration of local anesthesia using the standard protocol, a 6-[place] sheath was placed in the right femoral artery. Intravenous heparin was used to maintain therapeutic ACT. An XB 3.5 guide catheter was used to engage the left main coronary artery. A BMW wire was used to cross the lesion in the mid circumflex. After initial predilatation, a 3.0 x 15 mm Resolute drug-eluting stent was deployed. This was then postdilated under fluoroscopic guidance with a 3.5 x 12 noncompliant balloon at high atmosphere. Angiogram repeated showed excellent result with good stent approximation and no residual stenosis. The wire was then redirected into the OM1. After the predilatation, a 2.25 x 18 mm Resolute drug-eluting stent was deployed in the proximal OM1 with excellent results. Angiogram repeated showed no residual stenosis, excellent APOLINAR 3 flow. The patient tolerated the procedure well. Wire and guide were removed. Sheath was sutured in place to be removed per femoral sheath protocol. The patient is already on Plavix XL 150 mg, so p.o. Plavix was given. FINDINGS: Hemodynamics: AO was 129/78. ANGIOGRAM DETAILS: 1. Left main is angiographically normal. 2. LAD has 90% proximal lesion. A distal comminuted flow is seen from the NÚÑEZ. 3. The circumflex is a medium to large caliber vessel that has 80-90% mid circumflex stenosis just after the takeoff of the OM1. OM1 itself has an 80% proximal stenosis. IMPRESSION: 1. Status post successful percutaneous intervention of the mid circumflex with the deployment of 3.0 x 15 Resolute drug-eluting stent, postdilated to high atmosphere with a 3.5 mm balloon. 2. Status post successful percutaneous intervention of the proximal obtuse marginal 1 with deployment of 2.25 x 18 Resolute drug-eluting stent. PLAN: 1. Dual antiplatelet therapy for 1 year given the presentation of unstable angina. 2. Routine pharmacotherapy post-PCI. 3. Dialysis post-procedure. 4. Routine groin care. 5. Aggressive risk factor modification. JOB# [id number] SONIA/NTS
--- NOTE | 2019-08-27 12:54 | Progress Note ---
Assessment and Plan Assessment and plan: Patient is a 58-year-old man with a history of ESRD, hypertension and CVA (2013) who presents to [facility] ED with chest pains and near syncope. He was found to have positive troponin with on going chest pains, so [facility] (in coordination) with hemodialysis is planned for today. Cardiac cath this admission - patent SVG to distal RCA; patent ESTELITA to Diagonal; patient NÚÑEZ to LAD; scattered obstructive stenosis in the proximal Cx and PLOM as well as proximal OM1 (The circumflex was not bypassed in the past). Chest pain, suspected NSTEMI vs type 2 MT -EKG; LVH -Cardiology consult, input noted -[facility] done #2 today Start DAPT Start high intensity statin therapy Start anti-anginal therapy ESRD -MWF dialysis -Nephrology consult -monitor labs Hypertension -BP currently stable -Continue home meds after reconciled, adjust as needed -PRN IV hydralazine -Monitor BP q shift DVT prophylaxis -SCD to BLE while in bed -Heparin subq Coronary artery disease s/p CABG x 3 in 2013 at [place] s/p PCI with stents to Circ and OM today Disposition: anticipate d/c tomorrow once cleared by Cardiology History Interval history: Patient was seen and examined. Follow-up on current diagnosis chest pains. +Recurrent Chest pains. No overnight events reported to me. Patient denies any shortness breath, nausea/vomiting or severe headaches. Imaging, nursing note, chart, labs and old chart reviewed. Discussed with patient. Hospitalist Physical - Physical exam Narrative exam: Gen: WDWN, NAD, Awake, Alert, Orientated HEENT: NCAT, EOMI, PERRL, OP Clear Neck: supple, no adenopathy, no thyromegaly, no JVD CVS/Heart: RRR, normal S1S2, pulses present bilaterally Chest/Lungs: CTA B, Symmetrical chest expansion, good air entry bilaterally GI/Abdomen: soft, NTND, good bowel sounds, no guarding or rebound /Bladder: no suprapubic tenderness, no CVA or paraspinal tenderness Extermity/Skin: no c/c/e, no obvious rash MSK: FROM x 4 Neuro: CN 2-12 grossly intact, no new focal deficits Psych: calm - Constitutional Vitals: Temp Pulse Resp BP Pulse Ox 98 F 71 19 136/76 93 08/27/19 08:18 08/27/19 11:20 08/27/19 11:20 08/27/19 11:20 08/27/19 11:20 General appearance: Present: no acute distress Results - Labs CBC & Chem 7: 08/27/19 06:03 08/27/19 06:03 Labs: Laboratory Last Values WBC 4.4 K/mm3 (4.5-11.0) L 08/27/19 06:03 RBC 3.88 M/mm3 (3.65-5.03) 08/27/19 06:03 Hgb 11.6 gm/dl (11.8-15.2) L 08/27/19 06:03 Hct 34.9 % (35.5-45.6) L 08/27/19 06:03 MCV 90 fl (84-94) 08/27/19 06:03 MCH 30 pg (28-32) 08/27/19 06:03 MCHC 33 % (32-34) 08/27/19 06:03 RDW 16.1 % (13.2-15.2) H 08/27/19 06:03 Plt Count 140 K/mm3 (140-440) 08/27/19 06:03 Lymph % (Auto) 37.1 % (13.4-35.0) H 08/27/19 00:38 [place] % (Auto) 9.3 % (0.0-7.3) H 08/27/19 00:38 Eos % (Auto) 2.3 % (0.0-4.3) 08/27/19 00:38 Baso % (Auto) 0.6 % (0.0-1.8) 08/27/19 00:38 Lymph # 1.9 K/mm3 (1.2-5.4) 08/27/19 00:38 [place] # 0.5 K/mm3 (0.0-0.8) 08/27/19 00:38 Eos # 0.1 K/mm3 (0.0-0.4) 08/27/19 00:38 Baso # 0.0 K/mm3 (0.0-0.1) 08/27/19 00:38 Seg Neutrophils % 50.7 % (40.0-70.0) 08/27/19 00:38 Seg Neutrophils # 2.6 K/mm3 (1.8-7.7) 08/27/19 00:38 PT 12.6 Sec. (12.2-14.9) 08/27/19 06:03 INR 0.93 (0.87-1.13) 08/27/19 06:03 APTT 27.6 Sec. (24.2-36.6) 08/22/19 18:38 Activated Clotting Time 158 (74-137) H 08/27/19 10:55 Sodium 134 mmol/L (137-145) L 08/27/19 06:03 Potassium 3.7 mmol/L (3.6-5.0) 08/27/19 06:03 Chloride 92.4 mmol/L (98-107) L 08/27/19 06:03 Carbon Dioxide 25 mmol/L (22-30) 08/27/19 06:03 Anion Gap 20 mmol/L 08/27/19 06:03 BUN 57 mg/dL (9-20) H 08/27/19 06:03 Creatinine 7.7 mg/dL (0.8-1.5) H 08/27/19 06:03 Estimated GFR 9 ml/min 08/27/19 06:03 BUN/Creatinine Ratio 7 % 08/27/19 06:03 Glucose 99 mg/dL (75-100) 08/27/19 06:03 POC Glucose 90 (70-105) 08/27/19 06:22 Calcium 8.6 mg/dL (8.4-10.2) 08/27/19 06:03 Total Creatine Kinase 1035 units/L (55-170) H 08/23/19 05:19 CK-MB (CK-2) 5.0 ng/mL (0.0-4.0) H 08/23/19 05:19 CK-MB (CK-2) Rel Index 0.4 (0-4) 08/23/19 05:19 Troponin T 0.044 ng/mL (0.00-0.029) H 08/23/19 05:19 Triglycerides 391 mg/dL (2-149) H 08/22/19 18:38 Cholesterol 215 mg/dL (50-199) H 08/22/19 18:38 LDL Cholesterol Direct 126 mg/dL (50-130) 08/22/19 18:38 HDL Cholesterol 37 mg/dL (40-59) L 08/22/19 18:38 Cholesterol/HDL Ratio 5.81 % 08/22/19 18:38 Hepatitis A IgM Ab Non-reactive (NonReactive) 08/24/19 12:04 Hep Bs Antigen Non-reactive (Negative) 08/24/19 12:04 Hep B Core IgM Ab Non-reactive (NonReactive) 08/24/19 12:04 Hepatitis C Antibody Non-reactive (NonReactive) 08/24/19 12:04 Active Medications - Current Medications Current Medications: Generic Name Dose Route Start Last Admin Trade Name Freq PRN Reason Stop Dose Admin Acetaminophen 650 mg 08/22/19 19:52 08/24/19 12:17 Tylenol PO 650 mg Q4H PRN Administration Pain MILD(1-3)/Fever >100.5/BOYCE Amlodipine Besylate 2.5 mg 08/24/19 10:00 08/26/19 09:37 Amlodipine PO 2.5 mg QDAY FER Administration Aspirin 81 mg 08/24/19 11:00 08/26/19 09:37 Halfprin Ec PO 81 mg QDAY FER Administration Atorvastatin Calcium 80 mg 08/24/19 22:00 08/26/19 21:57 Lipitor PO 80 mg QHS FER Administration Carvedilol 3.125 mg 08/24/19 11:00 08/26/19 21:57 Coreg PO 3.125 mg BID FER Administration Clopidogrel Bisulfate 75 mg 08/24/19 11:00 08/26/19 09:37 Plavix PO 75 mg QDAY FER Administration Fluticasone Propionate 100 mcg 08/26/19 10:00 08/26/19 15:15 Flonase NS Not Given QDAY FER Heparin Sodium (Porcine) 5,000 unit 08/22/19 22:00 08/26/19 21:58 Heparin SUB-Q 5,000 unit Q12HR FER Administration Heparin Sodium (Porcine) 1,000 unit 08/23/19 19:44 Heparin 10,000 Units/10 Ml IV KATELYN PRN hemodialysis Hydralazine HCl 10 mg 08/22/19 22:00 Apresoline IV Q4HR PRN FOR SBP>160 AND/OR DBP>100 Sodium Chloride 100 mls @ 999 mls/hr 08/24/19 08:31 Nacl 0.9% IV KATELYN PRN Hypotension Multivit/Ca Carb/B Cmplx/FA/Prenat 1 cap 08/23/19 10:00 08/26/19 09:37 Renal Caps PO 1 cap QDAY FER Administration Ondansetron HCl 4 mg 08/22/19 19:52 08/24/19 21:36 Zofran IV 4 mg Q8H PRN Administration Nausea And Vomiting Sevelamer Carbonate 800 mg 08/23/19 08:00 08/26/19 17:51 Renvela PO 800 mg TIDWM FER Administration Sodium Chloride 10 ml 08/22/19 22:00 08/26/19 21:58 Sodium Chloride Flush Syringe 10 Ml IV 10 ml BID FER Administration Sodium Chloride 10 ml 08/22/19 19:52 08/25/19 01:40 Sodium Chloride Flush Syringe 10 Ml IV 10 ml PRN PRN Administration LINE FLUSH
[2019-08-27] MEDS: amLODIPine 5 MG TAB PO SCH (16:21)
[2019-08-27] MEDS: ASPIRIN EC 81 MG TAB PO SCH (16:21)
[2019-08-27] MEDS: HEPARIN 5,000 UNIT/1 ML VIAL SUB-Q SCH ×2 (16:21→22:44)
[2019-08-27] MEDS: SEVELAMER CARBONATE 800 MG TAB PO SCH ×2 (16:21→18:41)
[2019-08-27] MEDS: FLUTICASONE PROPIONATE NASAL SPRAY 16 GM NS SCH (16:21)
[2019-08-27] MEDS: carvediloL 3.125 MG TAB PO SCH ×2 (16:22→22:43)
[2019-08-27] MEDS: FOLIC ACID/VIT B COMP W-C 1 MG (RENAL CAPS) PO SCH (16:22)
[2019-08-27] MEDS: CLOPIDOGREL 75 MG TAB PO SCH (16:22)
--- NOTE | 2019-08-27 17:16 | Progress Note ---
Assessment and Plan - Patient Problems (1) End stage renal disease Current Visit: Yes Status: Acute Plan to address problem: Cont Hemodialysis on a Tuesday, Tuesday and Tuesday schedule (2) Coronary artery disease Current Visit: Yes Status: Acute Plan to address problem: Pt s/p cardiac cath showing: patent SVG to distal RCA; patent ESTELITA to Diagonal; patient NÚÑEZ to LAD; scattered obstructive stenosis in the proximal Cx and PLOM as well as proximal OM1.s/p multilesion PCI. To arrange HD after PCI (3) Anemia of chronic illness Current Visit: Yes Status: Acute Plan to address problem: Continue Erythropoetin on dialysis (4) Hypertensive chronic kidney disease with stage 5 chronic kidney disease or end stage renal disease Current Visit: Yes Status: Acute Plan to address problem: Follow-up blood pressure on current medications Subjective Date of service: 08/27/19 Principal diagnosis: Unstable angina Interval history: Pt awake, alert in no acute distress. s/p PCI Objective - Vital Signs Vital signs: Vital Signs - 12hr 08/27/19 08/27/19 08/27/19 08:18 08:47 09:00 Temperature 98 F Pulse Rate 71 70 70 Respiratory 10 L 16 13 Rate Blood Pressure 109/70 113/71 112/76 O2 Sat by Pulse 97 91 96 Oximetry 08/27/19 08/27/19 08/27/19 09:15 09:30 09:45 Temperature Pulse Rate 69 72 67 Respiratory 13 13 14 Rate Blood Pressure 108/69 107/74 104/71 O2 Sat by Pulse 94 95 95 Oximetry 08/27/19 08/27/19 08/27/19 10:00 10:30 11:00 Temperature Pulse Rate 78 70 Respiratory 12 13 18 Rate Blood Pressure 109/76 100/76 140/72 O2 Sat by Pulse 95 94 Oximetry 08/27/19 08/27/19 08/27/19 11:05 11:10 11:15 Temperature Pulse Rate 72 70 71 Respiratory 12 12 14 Rate Blood Pressure 134/74 121/75 130/68 O2 Sat by Pulse 97 97 96 Oximetry 08/27/19 08/27/19 11:20 15:18 Temperature 98.1 F Pulse Rate 71 84 Respiratory 19 18 Rate Blood Pressure 136/76 134/77 O2 Sat by Pulse 93 97 Oximetry - General Appearance General appearance: well-developed, well-nourished, appears stated age EENT: ATNC, PERRL, mucous membranes moist Neck: no JVD Respiratory: Present: Clear to Ascultation Cardiology: regular, S1S2 Gastrointestinal: normoactive bowel sounds Integumentary: no rash, other (no edema ) Neurologic: no focal deficit, alert and oriented x3, strength 5/5, CN 3-12 intact Psychiatric: mood/affect appropriate, cooperative - Lab 08/27/19 06:03 08/27/19 06:03 Most recent lab results Calcium 8.6 mg/dL (8.4-10.2) 08/27/19 06:03 Medications & Allergies - Medications Allergies/Adverse Reactions: Allergies No Known Allergies Allergy (Unverified 08/22/19 17:54) Home Medications: Home Medications Medication Instructions Recorded Confirmed Last Taken Type B Complex 11/Folic/C/Biot/Zinc 1 each PO DAILY 08/22/19 08/22/19 08/22/19 History [Dialyvite with Zinc Tablet] Losartan Potassium 100 mg PO DAILY 08/22/19 08/22/19 08/22/19 History Sevelamer Carbonate [Renvela] 800 mg PO TIDWM 08/22/19 08/22/19 08/22/19 History carvediloL [Coreg] 6.25 mg PO BID 08/22/19 08/22/19 08/22/19 History Active Medications: Generic Name Dose Route Start Last Admin Trade Name Freq PRN Reason Stop Dose Admin Acetaminophen 650 mg 08/22/19 19:52 08/24/19 12:17 Tylenol PO 650 mg Q4H PRN Administration Pain MILD(1-3)/Fever >100.5/BOYCE Amlodipine Besylate 2.5 mg 08/24/19 10:00 08/27/19 16:21 Amlodipine PO Not Given QDAY FER Aspirin 81 mg 08/24/19 11:00 08/27/19 16:21 Halfprin Ec PO Not Given QDAY FER Atorvastatin Calcium 80 mg 08/24/19 22:00 08/26/19 21:57 Lipitor PO 80 mg QHS FER Administration Carvedilol 3.125 mg 08/24/19 11:00 08/27/19 16:22 Coreg PO Not Given BID FER Clopidogrel Bisulfate 75 mg 08/24/19 11:00 08/27/19 16:22 Plavix PO Not Given QDAY [facility] Fluticasone Propionate 100 mcg 08/26/19 10:00 08/27/19 16:21 Flonase NS Not Given QDAY [facility] Heparin Sodium (Porcine) 5,000 unit 08/22/19 22:00 08/27/19 16:21 Heparin SUB-Q Not Given Q12HR FER Heparin Sodium (Porcine) 1,000 unit 08/23/19 19:44 Heparin 10,000 Units/10 Ml IV KATELYN PRN hemodialysis Hydralazine HCl 10 mg 08/22/19 22:00 Apresoline IV Q4HR PRN FOR SBP>160 AND/OR DBP>100 Sodium Chloride 100 mls @ 999 mls/hr 08/24/19 08:31 Nacl 0.9% IV KATELYN PRN Hypotension Multivit/Ca Carb/B Cmplx/FA/Prenat 1 cap 08/23/19 10:00 08/27/19 16:22 Renal Caps PO Not Given QDAY [facility] Ondansetron HCl 4 mg 08/22/19 19:52 08/24/19 21:36 Zofran IV 4 mg Q8H PRN Administration Nausea And Vomiting Sevelamer Carbonate 800 mg 08/23/19 08:00 08/27/19 16:21 Renvela PO Not Given TIDWM FER Sodium Chloride 10 ml 08/22/19 22:00 08/26/19 21:58 Sodium Chloride Flush Syringe 10 Ml IV 10 ml BID FER Administration Sodium Chloride 10 ml 08/22/19 19:52 08/25/19 01:40 Sodium Chloride Flush Syringe 10 Ml IV 10 ml PRN PRN Administration LINE FLUSH
[2019-08-27] MEDS: ACETAMINOPHEN 325 MG TAB PO PRN (22:43)
[2019-08-28 04:29] VITALS: BP 130/71
[2019-08-28 05:21] LABS: Basophils % (Auto) 0.5 % (0.0-1.8); Eosinophils # (Auto) 0.1 K/mm3 (0.0-0.4); Eosinophils % (Auto) 2.4 % (0.0-4.3); Hematocrit 33.9 % (35.5-45.6); Hemoglobin 11.5 gm/dl (11.8-15.2); Lymphocytes # (Auto) 0.7 K/mm3 (1.2-5.4); Lymphocytes % (Auto) 19.9 % (13.4-35.0); Mean Corpuscular HGB Conc 34 % (32-34); Mean Corpuscular Volume 89 fl (84-94); Monocytes # (Auto) 0.4 K/mm3 (0.0-0.8); Monocytes % (Auto) 11.5 % (0.0-7.3); Platelet Count 133 K/mm3 (140-440); Red Blood Count 3.79 M/mm3 (3.65-5.03); Red Cell Distribution Width 15.8 % (13.2-15.2)
[2019-08-28 05:41] LABS: Creatine Kinase MB 3.6 ng/mL (0.0-4.0)
[2019-08-28 05:48] LABS: Calcium 8.7 mg/dL (8.4-10.2)
--- NOTE | 2019-08-28 08:27 | XRay Report ---
CHEST 1 VIEW INDICATION: post pci. COMPARISON: 08/22/2019 FINDINGS: Support devices: None. Heart: Within normal limits. CABG changes are noted. Lungs/Pleura: No acute air space or interstitial disease. Additional findings: None. IMPRESSION: No acute findings. Signer Name: Joby Morataya Jr, MD Signed: 08/28/2019 8:23 AM Workstation Name: [id number]
--- NOTE | 2019-08-28 10:11 | Progress Note ---
Assessment and Plan Unstable angina Cardiac cath this admission - patent SVG to distal RCA; patent ESTELITA to Diagonal; patient NÚÑEZ to LAD, EF 55% s/p PCI of the LCx and OM 08/27 using drug eluting stents; on DAPT with plavix and aspirin Coronary artery disease s/p CABG x 3 in 2013 at [place] ESRD on HD Essential primary hypertension Chronic anemia Hyperlipidemia Recommendations: Continue medical therapy for coronary artery disease including DAPT without interruption. Stable for cardiac caceres for discharge. Patient will follow up with [facility] September 04 at 930 am. Subjective Date of service: 08/28/19 Principal diagnosis: Unstable angina Interval history: Patient is resting in bed comfortably. He denies chest pain and shortness of breath. No edema of right groin cath site. Objective Vital Signs Temp Pulse Resp BP Pulse Ox 08/28/19 03:26 98.6 F 90 16 130/71 95 08/27/19 22:25 98.4 F 95 H 16 188/88 99 08/27/19 20:39 98.2 F 78 20 182/86 08/27/19 20:15 81 178/89 08/27/19 20:00 80 180/96 08/27/19 19:45 75 168/91 08/27/19 19:30 73 171/93 08/27/19 19:15 75 167/88 08/27/19 19:00 78 168/91 08/27/19 18:45 83 159/87 08/27/19 18:30 80 173/91 08/27/19 18:15 86 181/98 08/27/19 18:00 76 169/91 08/27/19 17:45 80 160/81 08/27/19 17:30 89 174/79 08/27/19 17:15 85 163/79 08/27/19 17:05 98.2 F 88 20 159/72 08/27/19 15:18 98.1 F 84 18 134/77 97 08/27/19 11:20 71 19 136/76 93 08/27/19 11:15 71 14 130/68 96 08/27/19 11:10 70 12 121/75 97 08/27/19 11:05 72 12 134/74 97 08/27/19 11:00 70 18 140/72 94 08/27/19 10:30 13 100/76 - Physical Examination General: No Apparent Distress HEENT: Positive: PERRL Neck: Positive: trachea midline Cardiac: Positive: Reg Rate and Rhythm Lungs: Positive: Decreased Breath Sounds Neuro: Positive: Grossly Intact Abdomen: Positive: Soft, Active Bowel Sounds Incision: Cardiac Cath Site (right groin) Extremities: Absent: edema - Labs and Meds Cardiac Enzymes 08/28/19 Range/Units 04:47 CK-MB (CK-2) 3.6 (0.0-4.0) ng/mL CBC 08/28/19 Range/Units 04:47 WBC 3.6 L (4.5-11.0) K/mm3 RBC 3.79 (3.65-5.03) M/mm3 Hgb 11.5 L (11.8-15.2) gm/dl Hct 33.9 L (35.5-45.6) % Plt Count 133 L (140-440) K/mm3 Lymph # 0.7 L (1.2-5.4) K/mm3 [place] # 0.4 (0.0-0.8) K/mm3 Eos # 0.1 (0.0-0.4) K/mm3 Baso # 0.0 (0.0-0.1) K/mm3 Comprehensive Metabolic Panel 08/28/19 Range/Units 04:47 Sodium 137 (137-145) mmol/L Potassium 3.9 (3.6-5.0) mmol/L Chloride 95.2 L (98-107) mmol/L Carbon Dioxide 26 (22-30) mmol/L BUN 41 H (9-20) mg/dL Creatinine 5.9 H (0.8-1.5) mg/dL Glucose 112 H (75-100) mg/dL Calcium 8.7 (8.4-10.2) mg/dL
[2019-08-28] MEDS: SEVELAMER CARBONATE 800 MG TAB PO SCH (11:16)
[2019-08-28] MEDS: CLOPIDOGREL 75 MG TAB PO SCH (11:16)
[2019-08-28] MEDS: ASPIRIN EC 81 MG TAB PO SCH (11:17)
[2019-08-28] MEDS: carvediloL 3.125 MG TAB PO SCH (11:17)
[2019-08-28] MEDS: FOLIC ACID/VIT B COMP W-C 1 MG (RENAL CAPS) PO SCH (11:17)
[2019-08-28] MEDS: amLODIPine 5 MG TAB PO SCH (11:17)
[2019-08-28] MEDS: HEPARIN 5,000 UNIT/1 ML VIAL SUB-Q SCH (11:17)
--- NOTE | 2019-08-28 13:53 | Progress Note ---
Assessment and Plan - Patient Problems (1) End stage renal disease Current Visit: Yes Status: Acute Plan to address problem: Cont Hemodialysis on a Tuesday, Tuesday and Tuesday schedule. stable for discharge from renal stand point (2) Coronary artery disease Current Visit: Yes Status: Acute Plan to address problem: Pt s/p cardiac cath showing: patent SVG to distal RCA; patent ESTELITA to Diagonal; patient NÚÑEZ to LAD; scattered obstructive stenosis in the proximal Cx and PLOM as well as proximal OM1.s/p multilesion PCI. To arrange HD after PCI (3) Anemia of chronic illness Current Visit: Yes Status: Acute Plan to address problem: Continue Erythropoetin on dialysis (4) Hypertensive chronic kidney disease with stage 5 chronic kidney disease or end stage renal disease Current Visit: Yes Status: Acute Plan to address problem: Follow-up blood pressure on current medications Subjective Date of service: 08/28/19 Principal diagnosis: Unstable angina Interval history: Pt awake, alert in no acute distress. s/p PCI Objective - Vital Signs Vital signs: Vital Signs - 12hr 08/28/19 03:26 Temperature 98.6 F Pulse Rate 90 Respiratory 16 Rate Blood Pressure 130/71 O2 Sat by Pulse 95 Oximetry - General Appearance General appearance: well-developed, well-nourished, appears stated age EENT: ATNC, PERRL, mucous membranes moist Neck: no JVD Respiratory: Present: Clear to Ascultation Cardiology: regular, S1S2 Gastrointestinal: normoactive bowel sounds Integumentary: no rash, other (no edema ) Neurologic: no focal deficit, alert and oriented x3, strength 5/5, CN 3-12 intact Psychiatric: mood/affect appropriate, cooperative - Lab 08/28/19 04:47 08/28/19 04:47 Most recent lab results Calcium 8.7 mg/dL (8.4-10.2) 08/28/19 04:47 Medications & Allergies - Medications Allergies/Adverse Reactions: Allergies No Known Allergies Allergy (Unverified 08/22/19 17:54) Home Medications: Home Medications Medication Instructions Recorded Confirmed Last Taken Type B Complex 11/Folic/C/Biot/Zinc 1 each PO DAILY 08/22/19 08/22/19 08/22/19 History [Dialyvite with Zinc Tablet] Losartan Potassium 100 mg PO DAILY 08/22/19 08/22/19 08/22/19 History Sevelamer Carbonate [Renvela] 800 mg PO TIDWM 08/22/19 08/22/19 08/22/19 History carvediloL [Coreg] 6.25 mg PO BID 08/22/19 08/22/19 08/22/19 History Active Medications: Generic Name Dose Route Start Last Admin Trade Name Freq PRN Reason Stop Dose Admin Acetaminophen 650 mg 08/22/19 19:52 08/27/19 22:43 Tylenol PO 650 mg Q4H PRN Administration Pain MILD(1-3)/Fever >100.5/BOYCE Amlodipine Besylate 2.5 mg 08/24/19 10:00 08/28/19 11:17 Amlodipine PO 2.5 mg QDAY FER Administration Aspirin 81 mg 08/24/19 11:00 08/28/19 11:17 Halfprin Ec PO 81 mg QDAY FER Administration Atorvastatin Calcium 80 mg 08/24/19 22:00 08/27/19 22:43 Lipitor PO 80 mg QHS FER Administration Carvedilol 3.125 mg 08/24/19 11:00 08/28/19 11:17 Coreg PO 3.125 mg BID FER Administration Clopidogrel Bisulfate 75 mg 08/24/19 11:00 08/28/19 11:16 Plavix PO 75 mg QDAY FER Administration Fluticasone Propionate 100 mcg 08/26/19 10:00 08/27/19 16:21 Flonase NS Not Given QDAY FER Heparin Sodium (Porcine) 5,000 unit 08/22/19 22:00 08/28/19 11:17 Heparin SUB-Q 5,000 unit Q12HR FER Administration Heparin Sodium (Porcine) 1,000 unit 08/23/19 19:44 Heparin 10,000 Units/10 Ml IV KATELYN PRN hemodialysis Hydralazine HCl 10 mg 08/22/19 22:00 Apresoline IV Q4HR PRN FOR SBP>160 AND/OR DBP>100 Sodium Chloride 100 mls @ 999 mls/hr 08/24/19 08:31 Nacl 0.9% IV KATELYN PRN Hypotension Multivit/Ca Carb/B Cmplx/FA/Prenat 1 cap 08/23/19 10:00 08/28/19 11:17 Renal Caps PO 1 cap QDAY FER Administration Ondansetron HCl 4 mg 08/22/19 19:52 08/24/19 21:36 Zofran IV 4 mg Q8H PRN Administration Nausea And Vomiting Sevelamer Carbonate 800 mg 08/23/19 08:00 08/28/19 11:16 Renvela PO 800 mg TIDWM FER Administration Sodium Chloride 10 ml 08/22/19 22:00 08/28/19 11:17 Sodium Chloride Flush Syringe 10 Ml IV 10 ml BID FER Administration Sodium Chloride 10 ml 08/22/19 19:52 08/25/19 01:40 Sodium Chloride Flush Syringe 10 Ml IV 10 ml PRN PRN Administration LINE FLUSH
--- NOTE | 2019-08-28 15:34 | Discharge Summary ---
Providers - Providers Date of Admission: 08/23/19 16:22 Date of discharge: 08/28/19 Attending physician: SERVANDO SILVA 08/22/19 21:32 Consult to Physician [CONS] Routine Comment: Consulting Provider: DEB ROBBINS Physician Instructions: Reason For Exam: chest pain 08/22/19 21:37 Consult to Physician [CONS] Routine Comment: Consulting Provider: DARIEL DREW Physician Instructions: Reason For Exam: esrd 08/27/19 Consult to Cardiac Rehabilitation [CONS] Routine Reason For Exam: post pci Primary care physician: TURPENTINE DISTILLER Hospitalization Condition: Stable Procedures: PCI with 2 stents Hospital course: Pt is a 58-year-old male with a past medical history of ESRD, hypertension,and, CVA (2013),whom presents to ED with complaints of chest pain. Patient reports the chest pain started after he completed dialysis today. He was waiting at the bus stop, and the pain was a sudden onset and described as sharp in nature, without radiation and unaccompanied by any nausea. Patient states since he started dialysis in November of 2018, and he has had 2 incidents of shortness of breath right after being dialyzed with syncopal events. He states he has not received care or come to the ER because he was already close to home on both occasions. Unstable angina Cardiac cath this admission - patent SVG to distal RCA; patent ESTELITA to Diagonal; patient NÚÑEZ to LAD, EF 55% s/p PCI of the LCx and OM 08/27 using drug eluting stents; on DAPT with plavix and aspirin Coronary artery disease s/p CABG x 3 in 2013 at [place] ESRD on HD Essential primary hypertension Chronic anemia Hyperlipidemia Recommendations: Continue medical therapy for coronary artery disease including DAPT without interruption. Stable for discharge. Patient will follow up with [facility] September 04 at 930 am. Cont HD as per schedule Walking every day 1 to 3 miles gradually Patient understands. Disposition: - TO HOME OR SELFCARE Core Measure Documentation - Palliative Care Palliative Care/ Comfort Measures: Not Applicable - Core Measures Any of the following diagnoses?: none Exam - Constitutional Vitals: Temp Pulse Resp BP Pulse Ox 98.6 F 90 16 130/71 95 08/28/19 03:26 08/28/19 10:00 08/28/19 03:26 08/28/19 03:26 08/28/19 03:26 General appearance: Present: no acute distress, well-nourished - EENT Eyes: Present: PERRL ENT: hearing intact, clear oral mucosa - Neck Neck: Present: supple, normal ROM - Respiratory Respiratory effort: normal Respiratory: bilateral: CTA - Cardiovascular Heart rate: 78 Rhythm: regular Heart Sounds: Present: S1 & S2. Absent: rub, click - Extremities Extremities: pulses symmetrical, No edema Peripheral Pulses: within normal limits - Abdominal General gastrointestinal: Present: soft, non-tender, non-distended, normal bowel sounds Male genitourinary: Present: normal - Rectal Rectal Exam: deferred - Integumentary Integumentary: Present: clear, warm, dry - Musculoskeletal Musculoskeletal: gait normal, strength equal bilaterally - Psychiatric Psychiatric: appropriate mood/affect, intact judgment & insight - Neurologic Neurologic: CNII-XII intact, moves all extremities - Allied Health Allied health notes reviewed: nursing, case management Plan Activity: no restrictions Diet: low fat, low cholesterol, low salt, renal Follow up with: BRITTANI FELIZ MD [Staff Physician] - 7 Days PRIMARY CAREMD [Primary Care Provider] - 7 Days
== END 2019-08-28 16:55 | disposition home or self-care (01) | DRG 246 ==
LOC: ED 17:26 → 4A 19:52 → OBSVTOIN 08-23 16:22
PROVIDERS: ADMIT Internal Medicine; ATTEND Internal Medicine
PROC: 4A023N7 Measurement of Cardiac Sampling and Pressure, Left Heart, Percutaneous Approach (ICD-10-PCS; 2019-08-24)
PROC: B2111ZZ Fluoroscopy of Multiple Coronary Arteries using Low Osmolar Contrast (ICD-10-PCS; 2019-08-24)
PROC: B2151ZZ Fluoroscopy of Left Heart using Low Osmolar Contrast (ICD-10-PCS; 2019-08-24)
PROC: B2131ZZ Fluoroscopy of Multiple Coronary Artery Bypass Grafts using Low Osmolar Contrast (ICD-10-PCS; 2019-08-24)
PROC: B2181ZZ Fluoroscopy of Left Internal Mammary Bypass Graft using Low Osmolar Contrast (ICD-10-PCS; 2019-08-24)
PROC: B2171ZZ Fluoroscopy of Right Internal Mammary Bypass Graft using Low Osmolar Contrast (ICD-10-PCS; 2019-08-24)
PROC: 5A1D70Z Performance of Urinary Filtration, Intermittent, Less than 6 Hours Per Day (ICD-10-PCS; 2019-08-24)
PROC: 027135Z Dilation of Coronary Artery, Two Arteries with Two Drug-eluting Intraluminal Devices, Percutaneous Approach (ICD-10-PCS; principal; 2019-08-27)
PROC: B2101ZZ Fluoroscopy of Single Coronary Artery using Low Osmolar Contrast (ICD-10-PCS; 2019-08-27)
PROC: 5A1D70Z Performance of Urinary Filtration, Intermittent, Less than 6 Hours Per Day (ICD-10-PCS; 2019-08-27)
DX: I25.110 Atherosclerotic heart disease of native coronary artery with unstable angina pectoris (principal); N18.6 End stage renal disease; I12.0 Hypertensive chronic kidney disease with stage 5 chronic kidney disease or end stage renal disease; F10.10 Alcohol abuse, uncomplicated; D63.8 Anemia in other chronic diseases classified elsewhere; E78.5 Hyperlipidemia, unspecified; Z95.1 Presence of aortocoronary bypass graft; Z99.2 Dependence on renal dialysis; Z86.73 Personal history of transient ischemic attack (TIA), and cerebral infarction without residual deficits; Z80.9 Family history of malignant neoplasm, unspecified; Z83.3 Family history of diabetes mellitus; Z79.899 Other long term (current) drug therapy; Z91.14 Patient's other noncompliance with medication regimen; Z98.84 Bariatric surgery status; I25.2 Old myocardial infarction
CPT/HCPCS: 36415; 71045; 80048; 80061; 80074; 82550; 82553; 82962; 84484; 85025; 85027; 85347; 85610; 85730; 92928; 92929; 93005; 93010; 93459; G0378; A9270-GY; C1725; C1760; C1769; C1874; C1887; C9600; C9601; J0360; J1644; J2250; J2405; J2765; J3010; J7040; J7050; Q9967

== ENCOUNTER 2020-02-21 14:47 | Emergency (ER) | payer MEDICARE ==
--- NOTE | 2020-02-21 15:31 | Emergency Department Report ---
ED Abdominal Pain HPI - General Chief Complaint: Abdominal Pain Stated Complaint: URINATE RETENTION Time Seen by Provider: 02/21/20 15:21 Source: patient, EMS Mode of arrival: Stretcher Limitations: No Limitations - History of Present Illness Initial Comments: Patient is 59 years old male with history of end-stage renal disease on hemodialysis. Last dialysis was yesterday. Patient brought to the emergency room via EMS from a personal home care for evaluation of abdominal pain and vomiting started this morning. Patient stated that he also having trouble urinating and having significant dysuria but there is no hematuria. Patient describes his abdominal pain is suprapubic that radiated to his right flank and left flank all together. Patient denied any fever or chills. Patient denied diarrhea. Patient denied any contact with COVID-19 patient. Patient received Zofran by EMS and stated that it helped a lot with his nausea and vomiting. MD Complaint: abdominal pain, flank pain -: This morning Location: suprapubic, L flank, R flank Radiation: none Severity scale (0 -10): 0 - Related Data Previous Rx's Medication Instructions Recorded Last Taken Type Aspirin EC [Halfprin EC] 81 mg PO QDAY #100 tablet 08/28/19 Unknown Rx AtorvaSTATin [Lipitor] 80 mg PO QHS #30 tablet 08/28/19 Unknown Rx Clopidogrel [Plavix] 75 mg PO QDAY #30 tablet 08/28/19 Unknown Rx Fluticasone [Flonase] 100 mcg NS QDAY #1 bottle 08/28/19 Unknown Rx Folic Acid/Vit B Comp W-C [Renal 1 cap PO QDAY #30 capsule 08/28/19 Unknown Rx Caps] Losartan Potassium 100 mg PO DAILY #30 08/28/19 Unknown Rx Sevelamer Carbonate [Renvela] 800 mg PO TIDWM #90 tablet 08/28/19 Unknown Rx amLODIPine 2.5 mg PO QDAY #30 tablet 08/28/19 Unknown Rx carvediloL [Coreg] 6.25 mg PO BID #60 08/28/19 Unknown Rx Allergies Allergy/AdvReac Type Severity Reaction Status Date / Time No Known Allergies Allergy Unverified 08/22/19 17:54 ED Review of Systems ROS: Stated complaint: URINATE RETENTION Other details as noted in HPI Comment: All other systems reviewed and negative Constitutional: denies: chills, fever Respiratory: denies: cough, shortness of breath, SOB with exertion, SOB at rest, wheezing Cardiovascular: denies: chest pain, palpitations Gastrointestinal: abdominal pain, nausea, vomiting. denies: diarrhea, constipation, hematemesis, melena, hematochezia Neurological: denies: headache, weakness, numbness, paresthesias, confusion, abnormal gait ED Past Medical Hx - Past Medical History Hx Hypertension: Yes Hx CVA: Yes (2014) Hx Heart Attack/AMI: Yes (2013) Hx Renal Disease: Yes (HD MWF) Hx Asthma: No - Surgical History Hx Open Heart Surgery: Yes (CABG) - Social History Smoking Status: Never Smoker Substance Use Type: None - Medications Home Medications: Home Medications Medication Instructions Recorded Confirmed Last Taken Type Aspirin EC [Halfprin EC] 81 mg PO QDAY #100 tablet 08/28/19 Unknown Rx AtorvaSTATin [Lipitor] 80 mg PO QHS #30 tablet 08/28/19 Unknown Rx Clopidogrel [Plavix] 75 mg PO QDAY #30 tablet 08/28/19 Unknown Rx Fluticasone [Flonase] 100 mcg NS QDAY #1 bottle 08/28/19 Unknown Rx Folic Acid/Vit B Comp W-C [Renal 1 cap PO QDAY #30 capsule 08/28/19 Unknown Rx Caps] Losartan Potassium 100 mg PO DAILY #30 08/28/19 Unknown Rx Sevelamer Carbonate [Renvela] 800 mg PO TIDWM #90 tablet 08/28/19 Unknown Rx amLODIPine 2.5 mg PO QDAY #30 tablet 08/28/19 Unknown Rx carvediloL [Coreg] 6.25 mg PO BID #60 08/28/19 Unknown Rx ED Physical Exam - General Limitations: No Limitations General appearance: alert, in no apparent distress - Head Head exam: Present: atraumatic, normocephalic, normal inspection - Eye Eye exam: Present: normal appearance - ENT ENT exam: Present: normal exam, normal orophraynx, mucous membranes moist - Respiratory Respiratory exam: Present: normal lung sounds bilaterally - Cardiovascular Cardiovascular Exam: Present: regular rate, normal rhythm, normal heart sounds - GI/Abdominal GI/Abdominal exam: Present: soft, normal bowel sounds. Absent: distended, tenderness, guarding, rebound, rigid, organomegaly, mass, bruit, pulsatile mass, hernia - Extremities Exam Extremities exam: Present: normal inspection, full ROM, normal capillary refill. Absent: tenderness, pedal edema, calf tenderness - Back Exam Back exam: Present: normal inspection, full ROM. Absent: CVA tenderness (R), CVA tenderness (L) - Neurological Exam Neurological exam: Present: alert, oriented X3, CN II-XII intact, normal gait, reflexes normal. Absent: motor sensory deficit - Psychiatric Psychiatric exam: Present: normal mood - Skin Skin exam: Present: warm, intact, normal color ED Course Vital Signs 02/21/20 02/21/20 02/21/20 14:58 15:06 15:09 Temperature 98 F 98 F Pulse Rate 69 75 70 Respiratory 15 19 13 Rate Blood Pressure 125/68 Blood Pressure 125/68 [Left] O2 Sat by Pulse 97 100 Oximetry 02/21/20 02/21/20 16:00 17:00 Temperature Pulse Rate 65 73 Respiratory 11 L 13 Rate Blood Pressure 123/73 139/78 Blood Pressure [Left] O2 Sat by Pulse 96 97 Oximetry ED Medical Decision Making - Lab Data Result diagrams: 02/21/20 15:41 02/21/20 15:41 - Radiology Data Radiology results: report reviewed - Medical Decision Making Patient is 59 years old male with history of end-stage renal disease on hemodialysis. Last dialysis was yesterday. Patient brought to the emergency room via EMS from a personal home care for evaluation of abdominal pain and vomiting started this morning. Patient stated that he also having trouble urinating and having significant dysuria but there is no hematuria. Patient describes his abdominal pain is suprapubic that radiated to his right flank and left flank all together. Patient denied any fever or chills. Patient denied diarrhea. Patient denied any contact with COVID-19 patient. Patient received Zofran by EMS and stated that it helped a lot with his nausea and vomiting. Labs reviewed and showed UTI. Patient received Rocephin [address] abdomen and pelvis is unremarkable. Patient given prescription for ciprofloxacin and Zofran and advised to follow-up with his primary care physician in the next 2 to 3 days and to return to the ER if he develop any new symptoms. Critical care attestation.: If time is entered above; I have spent that time in minutes in the direct care of this critically ill patient, excluding procedure time. ED Disposition Clinical Impression: Abdominal pain, UTI (urinary tract infection), Nausea and vomiting Disposition: DC-01 TO HOME OR SELFCARE Is pt being admited?: No Condition: Stable Instructions: Abdominal Pain (ED), Urinary Tract Infection in Men (ED) Referrals: PRIMARY CARE, [Primary Care Provider] - 3-5 Days
[2020-02-21 15:51] LABS: Bilirubin,Urine NEG (Negative); Blood,Urine MOD (Negative); Color,Urine Yellow (Yellow); Mucus,Urine FEW /HPF; Urobilinogen,Urine < 2.0 mg/dL (<2.0)
[2020-02-21 16:23] LABS: Basophils % (Auto) 0.4 % (0.0-1.8); Eosinophils # (Auto) 0.1 K/mm3 (0.0-0.4); Eosinophils % (Auto) 0.9 % (0.0-4.3); Hematocrit 38.2 % (35.5-45.6); Lymphocytes # (Auto) 1.5 K/mm3 (1.2-5.4); Lymphocytes % (Auto) 22.7 % (13.4-35.0); Mean Corpuscular HGB Conc 34 % (32-34); Mean Corpuscular Volume 87 fl (84-94); Monocytes # (Auto) 0.6 K/mm3 (0.0-0.8); Monocytes % (Auto) 9.1 % (0.0-7.3); Platelet Count 143 K/mm3 (140-440); Red Blood Count 4.39 M/mm3 (3.65-5.03)
[2020-02-21 16:34] LABS: Albumin 4.9 g/dL (3.9-5); Calcium 9.7 mg/dL (8.4-10.2)
[2020-02-21] MEDS ORDERED: ACETAMINOPHEN 325 MG TAB PO ONE (16:40)
--- NOTE | 2020-02-21 17:01 | Cat Scan Report ---
CT scan of the abdomen and pelvis without contrast INDICATION: Nausea, abdominal pain, vomiting, urinary urgency. TECHNIQUE: All CT scans at this location are performed using the following dose modulation technique: Automated exposure control. Helical slices were obtained through the abdomen and pelvis. No contrast is adminis tered. COMPARISON: None available. FINDINGS: Abdomen: No acute abnormality is seen in the lower chest. The liver, spleen, pancreas, adrenal glands , and kidneys show no acute abnormality. The aorta is normal in diameter. There is no adenopathy. Ath erosclerotic calcifications are noted in the aorta and iliac arteries. There is no obstruction, infla mmation, or free air. There are no abnormal collections. The gallbladder is contracted. The appendix is unremarkable. Pelvis: There is no obstruction or inflammation. There are no abnormal fluid collections. There is no adenopathy. There are no renal or ureteral calculi. On review of bone windows, no acute osseous abnormalities are seen. IMPRESSION: 1. There is no obstruction, inflammation, or free air. There are no abnormal fluid collections. No ac elem abnormality is seen in the abdomen or pelvis. Signer Name: Garret Chi MD Signed: 02/21/2020 4:56 PM Workstation Name: [id number]
[2020-02-21] MEDS ORDERED: cefTRIAXone/NS 1 GM/50 ML 1 GM/50 ML BAG IV ONE (17:06)
[2020-02-22 00:42] VITALS: BP 132/74
== END 2020-02-22 00:42 | disposition home or self-care (01) ==
LOC: ED 14:47
DX: N39.0 Urinary tract infection, site not specified (principal); I13.11 Hypertensive heart and chronic kidney disease without heart failure, with stage 5 chronic kidney disease, or end stage renal disease; N18.6 End stage renal disease; I25.2 Old myocardial infarction; Z99.2 Dependence on renal dialysis; Z86.73 Personal history of transient ischemic attack (TIA), and cerebral infarction without residual deficits; Z79.899 Other long term (current) drug therapy; Z95.818 Presence of other cardiac implants and grafts
CPT/HCPCS: 36415; 74176; 80053; 81001; 83690; 85025; 96365; 99284; J0696